=== PATIENT | male | born 1965 | race Caucasian/White ===

== ENCOUNTER 2016-06-11 20:29 | Emergency (ER) | payer MEDICAID ==
[~2016-06-11] VITALS: Ht 170.2 cm; Wt 87.0 kg
[~2016-06-11 20:29] MED LIST: DEXL60CA2 PO; DIVA-16 PO; ELEC100080 PO; HYDR-762 PO; IBUP-1542 PO; LORA-408 PO
[2016-06-11 20:42] VITALS: Ht 170.2 cm; Wt 87.0 kg
[2016-06-11] MEDS ORDERED: OMEP10CA4 PO (22:36)
[2016-06-11 22:58] LABS: BASOPHILS % 0.5 % (0.0-2.0); EOSINOPHILS # 0.1 10^3/ul (0.0-0.5); HEMOGLOBIN 12.3 g/dl (14.0-18.0); LYMPHOCYTES # 3.5 10^3/ul (0.8-2.9); LYMPHOCYTES % 35.4 % (15.0-51.0); MEAN CORPUSCULAR HEMOGLOBIN 28.1 pg (29.0-33.0); MEAN CORPUSCULAR HGB CONC 33.3 g/dl (32.0-37.0); MEAN CORPUSCULAR VOLUME 84.6 fl (82.0-101.0); MONOCYTE # 0.9 10^3/ul (0.3-0.9); MONOCYTES % 8.8 % (0.0-11.0); NEUTROPHIL # 5.3 10^3/ul (1.6-7.5); NEUTROPHILS % 54.3 % (39.0-77.0); PLATELET COUNT 346 10^3/UL (140-440); RED BLOOD COUNT 4.37 10^6/ul (4.70-6.10); RED CELL DISTRIBUTION WIDTH 16.6 % (11.5-14.5); UNCORRECTED WBC 9.8 10^3/ul (4.8-10.8); WHITE BLOOD COUNT 9.8 10^3/ul (4.8-10.8)
[2016-06-11 23:00] LABS: INR 0.91; PROTIME 12.3 Sec (12.2-14.2)
[2016-06-11 23:01] LABS: PARTIAL THROMBOPLASTIN TIME 30.7 Sec (25.0-35.0)
--- NOTE | 2016-06-11 23:02 | RADRPT ---
PROCEDURE: XR Chest. CLINICAL INDICATION: Chest pain TECHNIQUE: A single portable view of the chest was obtained. COMPARISON: 11/04/2015 FINDINGS: The cardiomediastinal silhouette is within normal limits. The lungs and pleural spaces are clear. The soft tissues and osseous structures are unremarkable. IMPRESSION: No acute cardiopulmonary disease. RPTAT: HPNM Physician Sandra Date Time Electronically viewed and signed by Fransisco Doyle Physician on 06/11/2016 23:02 /
[2016-06-11 23:03] LABS: CONDITION 1; LH ANALYZER COMMENTS 1
[2016-06-11 23:10] LABS: ALBUMIN 4.2 g/dl (3.3-4.9); CHLORIDE 105 mmol/L (97-110); SODIUM 143 mmol/L (135-144)
[2016-06-11 23:11] LABS: POTASSIUM 4.5 mmol/L (3.5-5.1)
[2016-06-11 23:13] LABS: ALANINE AMINOTRANSFERASE 14 IU/L (13-69); ALBUMIN/GLOBULIN RATIO 1.13; ALKALINE PHOSPHATASE 67 IU/L (42-121); ANION GAP 18 (8-16); ASPARTATE AMINO TRANSFERASE 18 IU/L (15-46); BLOOD UREA NITROGEN 14 mg/dl (7-20); CALCIUM 8.8 mg/dl (8.4-10.2); CARBON DIOXIDE 25 mmol/L (21-31); CREATININE 0.62 mg/dl (0.61-1.24); GLUCOSE 103 mg/dl (70-220); TOTAL PROTEIN 7.9 g/dl (6.1-8.1)
[2016-06-11 23:20] LABS: B-TYPE NATRIURETIC PEPTIDE 31 PG/ML (0-125)
[2016-06-11 23:29] LABS: TROPONIN-I < 0.012 ng/ml (0.00-0.12)
--- NOTE | 2016-06-11 23:46 | ERD ---
ER Documentation Chief Complaint Date/Time DATE: 06/11/16 TIME: 23:44 Chief Complaint chest pain provoked as he was harassed by hotel staff, since this morning HPI This is a 51-year-old male comes with chest pain provoked by stress as he was harassed by [employer] staff. It happened this morning it has been on and off since then. No fevers or chills. Pain is mild to moderate in intensity, electric- like starting in the mid chest and radiating across both the right and left chest. No fevers or chills. No associated shortness of breath. No other current complaints. ROS All systems reviewed and are negative except as per history of present illness. Medications Home Meds Active Scripts Ibuprofen* (Motrin*) 600 Mg Tab, 600 MG PO Q6, #30 TAB Prov:NED BLANCHARD PA-C 01/10/16 Divalproex Sodium* (Divalproex Sodium*) 500 Mg Tablet., 500 MG PO TID, #90 TAB Prov:NED BLANCHARD PA-C 01/10/16 Reported Medications Omeprazole* (Omeprazole*) 10 Mg Capsule., 10 MG PO DAILY, #30 CAP 06/11/16 Lorazepam (Ativan) 1 Mg Tablet, 1 MG PO DAILY 08/15/11 Discontinued Reported Medications Hydrocodone Bit-Acetaminophen* ([place]*) 10-325 Mg Tablet, 1 TAB PO TID Y for PAIN, TAB 12/14/15 Divalproex Sodium* (Divalproex Sodium*) 500 Mg Tablet., 500 MG PO TID, #90 TAB 12/14/15 Dexlansoprazole (Dexilant) 60 Mg Cap., 60 MG PO DAILY 08/15/11 Discontinued Scripts Electrolyte,Oral (Pedialyte) 1,000 Ml Solution, 100 ML PO Q6 Y for FEVER, #1000 ML Prov:NED BLANCHARD PA-C 01/10/16 Ibuprofen* (Ibuprofen*) 600 Mg Tablet, 600 MG PO Q8 for PAIN AND/OR INFLAMMATION , #30 TAB Prov:SHAN LACEY MD 12/14/15 Allergies Allergies: Coded Allergies: Penicillins (Verified Allergy, Unknown, 06/11/16) PMhx/Soc History of Surgery: Yes (LUMBAR DISCECTOMY;) Anesthesia Reaction: No Hx Neurological Disorder: No Hx Respiratory Disorders: No Hx Cardiac Disorders: No Hx Psychiatric Problems: Yes (BIPOLAR, anxiety) Hx Miscellaneous Medical Probl: No Hx Alcohol Use: Yes Hx Substance Use: Yes (METH ) Hx Tobacco Use: No Smoking Status: Never smoker Physical Exam Vitals Vital Signs Date Time Temp Pulse Resp B/P Pulse Ox O2 Delivery O2 Flow Rate FiO2 06/11/16 22:15 98.6 76 20 117/82 100 Room Air 06/11/16 20:42 98.6 88 20 123/59 100 Physical Exam Const: [] Head: Atraumatic Eyes: Normal Conjunctiva ENT: Normal External Ears, Nose and Mouth. Neck: Full range of motion..~ No meningismus. Resp: Clear to auscultation bilaterally Cardio: Regular rate and rhythm, no murmurs Abd: Soft, non tender, non distended. Normal bowel sounds Skin: No petechiae or rashes Back: No midline or flank tenderness Ext: No cyanosis, or edema Neur: Awake and alert Psych: Normal Mood and Affect Result Diagram: 06/11/16221906/11/16 2220 Results 24 hrs Laboratory Tests Test 06/11/16 22:20 Activated Partial Thromboplast Time 30.7Sec Alanine Aminotransferase (ALT/SGPT) 14IU/L Albumin 4.2g/dl Albumin/Globulin Ratio 1.13 Alkaline Phosphatase 67IU/L Anion Gap 18 Aspartate Amino Transf (AST/SGOT) 18IU/L B-Type Natriuretic Peptide 31PG/ML Basophils # 0.010^3/ul Basophils % 0.5% Blood Morphology Comment Blood Urea Nitrogen 14mg/dl Calcium Level 8.8mg/dl Carbon Dioxide Level 25mmol/L Chloride Level 105mmol/L Creatinine 0.62mg/dl Direct Bilirubin 0.00mg/dl Eosinophils # 0.110^3/ul Eosinophils % 1.0% Globulin 3.70g/dl Glucose Level 103mg/dl Hematocrit 37.0% Hemoglobin 12.3g/dl INR International Normalized Ratio 0.91 Indirect Bilirubin 0.0mg/dl Lymphocytes # 3.510^3/ul Lymphocytes % 35.4% Mean Corpuscular Hemoglobin 28.1pg Mean Corpuscular Hemoglobin Concent 33.3g/dl Mean Corpuscular Volume 84.6fl Mean Platelet Volume 8.0fl Monocytes # 0.910^3/ul Monocytes % 8.8% Neutrophils # 5.310^3/ul Neutrophils % 54.3% Nucleated Red Blood Cells # 0.010^3/ul Nucleated Red Blood Cells % 0.0/100WBC Platelet Count 04748^3/UL Potassium Level 4.5mmol/L Prothrombin Time 12.3Sec Prothrombin Time Ratio 1.0 Red Blood Count 4.3710^6/ul Red Cell Distribution Width 16.6% Sodium Level 143mmol/L Total Bilirubin 0.0mg/dl Total Protein 7.9g/dl Troponin I < 0.012ng/ml White Blood Count 9.810^3/ul Procedures/MDM EKG: Rate/Rhythm: Normal Sinus Rhythm QRS, ST, T-waves: No changes consistent w/ acute ischemia Impression: No evidence of ischemia or arrhythmia Chest X-ray 1V Interpreted by me: Soft Tissue: No acute abnormalities Bones: No acute abnormalities Mediastinum/Cardiac Silhouette/Lungs: No acute abnormalities Patient's thoracic symptoms have stabilized while in the department and are stable for outpatient follow up. Exam and work up not consistent w/ ischemia, arrhythmia, PE or dissection. Symptomatology is inconsistent with acute coronary syndrome. At this point is stable for outpatient management. Patient has no risk factors for acute coronary syndrome. At this time he is chest pain-free. He will be discharged home and has been told to follow-up immediately with a hired worker as an outpatient. Return via 911 for any return of chest pain. Departure Diagnosis: Primary Impression: Chest pain Chest pain type: unspecified Qualified Code: R07.9 - Chest pain, unspecified type Condition: Stable BABATUNDE SMITH Jun 11, 2016 23:45
[2016-06-11 23:55] VITALS: BP 121/88; PULSE 68; RESP 20; TEMP 98.6
== END 2016-06-11 23:55 | disposition home or self-care (01) ==
LOC: E/R 20:29
DX: R07.9 Chest pain, unspecified (principal)
CPT/HCPCS: 36415; 71010; 80053; 83880; 84484; 85025; 85610; 85730; Z7502; 93005

== ENCOUNTER 2016-08-23 16:14 | Emergency (ER) | payer MEDICAID ==
[~2016-08-23] VITALS: Wt 91.0 kg
[~2016-08-23 16:14] MED LIST changes: -DEXL60CA2 PO; -ELEC100080 PO; -HYDR-762 PO; +OMEP10CA4 PO
--- NOTE | 2016-08-23 18:04 | ERD ---
ER Documentation Chief Complaint Date/Time DATE: 08/23/16 TIME: 17:59 Chief Complaint ANXIETY AND CHRONIC BACK PAIN HPI 51-year-old male with history of chronic back pain is complaining of short of breath and numbness. Patient stated that he "passed out" 1 hour ago. He also feeling weak and fatigued. He was seen yesterday at [facility] ER for chest pain. He had received complete workup for chest pain, everything was negative and he was discharged. Patient stated that he is currently homeless, he is awaiting for disability checks. He does not have any place to stay tonight, and he had not eaten anything today because he has no money. His back is hurting because he has to carry his duffel bag all day. ROS All systems reviewed and are negative except as per history of present illness. Medications Home Meds Active Scripts Ibuprofen* (Motrin*) 600 Mg Tab, 600 MG PO Q6, #30 TAB Prov:NED BLANCHARD PA-C 01/10/16 Divalproex Sodium* (Divalproex Sodium*) 500 Mg Tablet., 500 MG PO TID, #90 TAB Prov:NED BLANCHARD PA-C 01/10/16 Reported Medications Omeprazole* (Omeprazole*) 10 Mg Capsule.dr, 10 MG PO DAILY, #30 CAP 06/11/16 Lorazepam (Ativan) 1 Mg Tablet, 1 MG PO DAILY 08/15/11 Allergies Allergies: Coded Allergies: Penicillins (Verified Allergy, Unknown, 06/11/16) PMhx/Soc History of Surgery: Yes (LUMBAR DISCECTOMY;) Anesthesia Reaction: No Hx Neurological Disorder: No Hx Respiratory Disorders: No Hx Cardiac Disorders: No Hx Psychiatric Problems: Yes (BIPOLAR, anxiety) Hx Miscellaneous Medical Probl: No Hx Alcohol Use: Yes Hx Substance Use: Yes (METH ) Hx Tobacco Use: No Physical Exam Vitals Vital Signs Date Time Temp Pulse Resp B/P Pulse Ox O2 Delivery O2 Flow Rate FiO2 08/23/16 16:21 98.0 98 18 118/64 99 Physical Exam General impression: Well-developed, well-nourished. Alert, oriented, in no acute distress. Patient is resting comfortably in the gurney without any sign of anxiety. Head: Normocephalic, atraumatic. Eyes: PERRL, EOM normal. Sclerae are normal. Conjunctiva not injected. Neck: Supple, nontender. No lymphadenopathy. No nuchal rigidity. Respiration: Normal respiratory effort. Lungs clear to auscultate bilaterally. No wheezes, rales or rhonchi. Cardiovascular: Regular rate and rhythm. No murmurs or extra heart sounds. Abdomen: Abdomen normal to inspection. Nontender. No masses or organomegaly. Bowel sounds normal. Back: Normal to inspection. No midline spine tenderness. No CVA tenderness. Extremities: Extremities normal to inspection, nontender. ROM normal. Neuro: Mental status normal, speech normal. AUDIT PARTNER grossly intact. Skin: Normal turgor. No rash or lesions. Psych: Normal mood and affect. Result Diagram: 08/23/16180408/23/161804 Results 24 hrs Laboratory Tests Test 08/23/16 18:05 White Blood Count 8.310^3/ul Red Blood Count 4.7510^6/ul Hemoglobin 13.3g/dl Hematocrit 40.4% Mean Corpuscular Volume 85.1fl Mean Corpuscular Hemoglobin 28.0pg Mean Corpuscular Hemoglobin Concent 32.9g/dl Red Cell Distribution Width 12.4% Platelet Count 62419^3/UL Mean Platelet Volume 9.6fl Neutrophils % 56.4% Lymphocytes % 33.9% Monocytes % 7.7% Eosinophils % 1.7% Basophils % 0.2% Nucleated Red Blood Cells % 0.0/100WBC Neutrophils # 4.710^3/ul Lymphocytes # 2.810^3/ul Monocytes # 0.610^3/ul Eosinophils # 0.110^3/ul Basophils # 0.010^3/ul Nucleated Red Blood Cells # 0.010^3/ul Sodium Level 139mmol/L Potassium Level 3.4mmol/L Chloride Level 100mmol/L Carbon Dioxide Level 24mmol/L Anion Gap 18 Blood Urea Nitrogen 18mg/dl Creatinine 0.80mg/dl Glucose Level 152mg/dl Calcium Level 9.4mg/dl Total Bilirubin 0.2mg/dl Direct Bilirubin 0.00mg/dl Indirect Bilirubin 0.2mg/dl Aspartate Amino Transf (AST/SGOT) 22IU/L Alanine Aminotransferase (ALT/SGPT) 20IU/L Alkaline Phosphatase 54IU/L Troponin I < 0.012ng/ml Total Protein 8.3g/dl Albumin 4.7g/dl Globulin 3.60g/dl Albumin/Globulin Ratio 1.30 Procedures/MDM Well-appearing 51-year-old male with history of chronic back pain and anxiety presents to the ED with shortness breath and feeling anxious. Patient also reports feeling fatigued. EKG: Normal sinus rhythm, normal axis. No ST segment elevation or depression. No ectopic beats. No QT prolongation. No other EKG abnormalities. EKG read by Dr. Fonseca. CBC, CMP, and troponin are negative. No sign of anemia or electrolyte abnormalities. He had undergone cardiac workup yesterday at [facility]. I do not feel any further workup is needed at this time. Patient is currently homeless. I suspect the reason he came here is to seek temporary respite. Patient is provided with resources for housing and food. Patient appears well, stable for discharge and outpatient management. Medical decision making shared with patient and family. Education provided to patient and family. Patient and family expressed understanding of the plan. Medications on discharge: None. Follow-up: Primary care provider in 2-3 days or return to ED if worse. Departure Diagnosis: Primary Impression: Fatigue Condition: Good PARVIN MOTA NP Aug 23, 2016 18:04
[2016-08-23 18:19] LABS: ADD SCAN DIFF NO
[2016-08-23 18:24] LABS: BASOPHILS % 0.2 % (0.0-2.0); EOSINOPHILS # 0.1 10^3/ul (0.0-0.5); EOSINOPHILS % 1.7 % (0.0-7.0); HEMATOCRIT 40.4 % (42.0-52.0); HEMOGLOBIN 13.3 g/dl (14.0-18.0); LYMPHOCYTES # 2.8 10^3/ul (0.8-2.9); LYMPHOCYTES % 33.9 % (15.0-51.0); MEAN CORPUSCULAR HGB CONC 32.9 g/dl (32.0-37.0); MEAN CORPUSCULAR VOLUME 85.1 fl (82.0-101.0); MEAN PLATELET VOLUME 9.6 fl (7.4-10.4); MONOCYTE # 0.6 10^3/ul (0.3-0.9); MONOCYTES % 7.7 % (0.0-11.0); NEUTROPHIL # 4.7 10^3/ul (1.6-7.5); NEUTROPHILS % 56.4 % (39.0-77.0); PLATELET COUNT 329 10^3/UL (140-415); RED BLOOD COUNT 4.75 10^6/ul (4.70-6.10); RED CELL DISTRIBUTION WIDTH 12.4 % (11.5-14.5); WHITE BLOOD COUNT 8.3 10^3/ul (4.8-10.8)
[2016-08-23 18:35] LABS: ALBUMIN 4.7 g/dl (3.3-4.9); CHLORIDE 100 mmol/L (97-110)
[2016-08-23 18:36] LABS: POTASSIUM 3.4 mmol/L (3.5-5.1); SODIUM 139 mmol/L (135-144)
[2016-08-23 18:38] LABS: ANION GAP 18 (8-16); ASPARTATE AMINO TRANSFERASE 22 IU/L (15-46); BILIRUBIN,INDIRECT 0.2 mg/dl (0-1.1); BILIRUBIN,TOTAL 0.2 mg/dl (0.2-1.3); CARBON DIOXIDE 24 mmol/L (21-31); TOTAL PROTEIN 8.3 g/dl (6.1-8.1)
[2016-08-23 18:39] LABS: ALANINE AMINOTRANSFERASE 20 IU/L (13-69); ALKALINE PHOSPHATASE 54 IU/L (42-121); BLOOD UREA NITROGEN 18 mg/dl (7-20); CALCIUM 9.4 mg/dl (8.4-10.2); GLUCOSE 152 mg/dl (70-220)
[2016-08-23 19:04] LABS: TROPONIN-I < 0.012 ng/ml (0.00-0.12)
== END 2016-08-23 20:08 | disposition home or self-care (01) ==
LOC: FTE 16:14
DX: R53.83 Other fatigue (principal)
CPT/HCPCS: 36415; 80053; 84484; 85025; 93005; Z7502

== ENCOUNTER 2016-08-26 22:55 | Emergency (ER) | payer MEDICAID ==
[~2016-08-26] VITALS: Ht 179.1 cm; Wt 82.5 kg
[2016-08-26 23:12] VITALS: Ht 179.1 cm; Wt 82.5 kg
[2016-08-27] MEDS ORDERED: KETOROLAC 60 MG INJ IM STA (01:29)
[2016-08-27] MEDS ORDERED: METHYLPREDNISOLONE 125 MG INJ IM ONE (01:30)
[2016-08-27] MEDS ORDERED: LORAZEPAM 0.5 MG TAB PO ONE (01:30)
--- NOTE | 2016-08-27 01:42 | ERD ---
ER Documentation Chief Complaint Date/Time DATE: 08/27/16 TIME: 01:36 Chief Complaint C/O LOWER BACK PAIN X5 DAYS. NO MEDS DUE TO INSURANCE ISSUES. HPI 51-year-old male with a history of chronic back pain and anxiety, presents to the emergency department complaining of low back pain, and neck pain with radiation down the left arm. He notes associated numbness and tingling. Patient states that these symptoms are similar to prior episodes and he has experienced these symptoms intermittently over the past 10 years. Patient states he initially injured his back during a waterskiing injury. Patient states he is here to control his pain and notes that he has no money and he is hoping to stay the night in the hospital as he does not have a place to go. Patient denies any bowel or bladder incontinence, numbness or tingling in his feet, or other new trauma. Additionally patient denies any chest pain, shortness of breath, unilateral leg swelling, prolonged immobilization, recent surgery, or history of cancer. ROS All systems reviewed and are negative except as per history of present illness. Medications Home Meds Active Scripts Naproxen* (Naprosyn*) 500 Mg Tablet, 500 MG PO BID for 7 Days, TAB Prov:YANELIS PEÑA PA-C 08/27/16 Hydrocodone/Acetaminophen ([place] 5-325 Tablet) 1 Each Tablet, 1 TAB PO Q6H Y for PAIN, #7 TAB Prov:YANELIS PEÑA PA-C 08/27/16 Ibuprofen* (Motrin*) 600 Mg Tab, 600 MG PO Q6, #30 TAB Prov:NED BLANCHARD PA-C 01/10/16 Divalproex Sodium* (Divalproex Sodium*) 500 Mg Tablet., 500 MG PO TID, #90 TAB Prov:NED BLANCHARD PA-C 01/10/16 Reported Medications Omeprazole* (Omeprazole*) 10 Mg Capsule.dr, 10 MG PO DAILY, #30 CAP 06/11/16 Lorazepam (Ativan) 1 Mg Tablet, 1 MG PO DAILY 08/15/11 Allergies Allergies: Coded Allergies: Penicillins (Verified Allergy, Unknown, 06/11/16) PMhx/Soc History of Surgery: Yes (LUMBAR DISECTOMY;) Anesthesia Reaction: No Hx Neurological Disorder: No Hx Respiratory Disorders: No Hx Cardiac Disorders: No Hx Psychiatric Problems: Yes (BIPOLAR, anxiety) Hx Miscellaneous Medical Probl: No Hx Alcohol Use: Yes Hx Substance Use: Yes (METH ) Hx Tobacco Use: No (pt denies) Physical Exam Vitals Vital Signs Date Time Temp Pulse Resp B/P Pulse Ox O2 Delivery O2 Flow Rate FiO2 08/26/16 23:12 97.1 111 20 121/77 98 Physical Exam Const: Well-developed, well-nourished, no acute distress Head: Atraumatic Eyes: Normal Conjunctiva ENT: Normal External Ears, Nose and Mouth. Neck: Full range of motion.. No tenderness to palpation at cervical spine. Resp: Clear to auscultation bilaterally Cardio: Regular rate and rhythm, no murmurs Abd: Soft, non tender, non distended. Normal bowel sounds Skin: No petechiae or rashes Back: No midline or flank tenderness Ext: Full range of motion at upper and lower extremities bilaterally. Positive straight leg test. Decreased sensation along distal left upper extremity. Patient unable to discriminate between 2 points along radial and ulnar aspects of all 5 fingers. Radial pulses 2+ equal and bilateral. Upper extremity distal skin warm and well perfused. Brisk capillary refill. No evidence of significant atrophy. Strength equal and bilateral. No cyanosis, or edema Neur: Awake and alert Psych: Normal Mood and Affect Results 24 hrs Current Medications Medications (Trade) Dose Ordered Sig/Susi Route PRN Reason Start Time Stop Time Status Last Admin Dose Admin Ketorolac Tromethamine (Toradol) 60 mg ONCE STAT IM 08/27/16 01:29 08/27/16 01:32 DC Methylprednisolone Sodium Succinate (Solu-Medrol) 60 mg ONCE ONCE IM 08/27/16 01:30 08/27/16 01:32 DC Lorazepam (Ativan) 0.5 mg ONCE ONCE PO 08/27/16 01:30 08/27/16 01:32 DC Procedures/MDM 51-year-old male with a history of chronic back pain and anxiety presents the emergency department requesting to be admitted due to the fact that he is homeless and needs a place to sleep. Patient complains of ongoing back pain associated with left upper extremity numbness and tingling. Patient states that symptoms are similar to prior episodes. Patient able to ambulate without difficulty. Patient denies any bowel or bladder incontinence. The patient's low back pain is unlikely related to serious etiology. The patient exhibits no clinical signs or symptoms and has no history or risk factors to suggest cauda equina, cord compression, epidural abscess, epidural hematoma, acute aortic aneurysm or dissection. Patient's vital signs were reviewed. Patient is afebrile, mildly tachycardic at 111 bpm, normotensive and not hypoxic upon arrival. Patient denies any major leg swelling or redness, recent surgery, prolonged immobilization. At this time a low suspicion for acute DVT or PE. Patient received Toradol and Solu-Medrol in the emergency department as well as 0.5 mg of Ativan. Patient reports improvement of symptoms. Based on patient's history of present illness and physical examination the decision was made to discharge. The patient was re-evaluated after ED treatment and stabilizing measures, and symptoms have improved. There is no evidence of life threatening injuries or illnesses at this time. On re-examination, patient resting in no distress, stable vital signs, reports feeling better and safe for discharge with outpatient follow up with PMD in 1-2 days. Patient given return precautions. Departure Diagnosis: Primary Impression: Back pain Back pain location: low back pain Chronicity: chronic Back pain laterality : midline Sciatica presence: unspecified whether sciatica present Qualified Code: M54.5 - Chronic midline low back pain, with sciatica presence unspecified Additional Impressions: Neck pain Cervical radiculopathy YANELIS PEÑA PA-C Aug 27, 2016 01:42
[2016-08-27] MEDS ORDERED: HYDR-906 PO (01:43)
[2016-08-27] MEDS ORDERED: NAPR-260 PO (01:43)
[2016-08-27] MEDS ORDERED: IBUP400T22 PO (14:13)
[2016-08-27] MEDS ORDERED: ACET325T33 PO (14:13)
[2016-08-27] MEDS ORDERED: FAMO-18 PO (14:14)
== END 2016-08-27 01:51 | disposition home or self-care (01) ==
LOC: FTE 22:55
DX: M54.5 Low back pain (principal); M54.2 Cervicalgia; M54.12 Radiculopathy, cervical region
CPT/HCPCS: 96372; J1885; J2930; Z7502; Z7610

== ENCOUNTER 2016-08-27 09:23 | Emergency (ER) | payer MEDICAID ==
[~2016-08-27] VITALS: Ht 175.3 cm; Wt 83.5 kg
[~2016-08-27 09:23] MED LIST changes: +HYDR-906 PO; +NAPR-260 PO
[2016-08-27 09:43] VITALS: Ht 175.3 cm; Wt 83.5 kg
[2016-08-27] MEDS ORDERED: DIAZEPAM 5 MG TAB PO STA (10:47)
[2016-08-27] MEDS ORDERED: KETOROLAC 15 MG INJ IM STA (10:47)
[2016-08-27] MEDS ORDERED: FAMOTIDINE 20 MG TAB PO STA (10:54)
--- NOTE | 2016-08-27 11:11 | ERD ---
ER Documentation Chief Complaint Date/Time DATE: 08/27/16 TIME: 11:06 Chief Complaint BACK PAIN SEEN LAST NIGHT, RINGING BOTH EARS X2 MTHS HPI This is a 51-year-old male presenting to the emergency department who is homeless with history of PTSD, ruptured disc in the lower back with a microdiscectomy surgery 10 years ago, and cervical nerve impingement presenting to the emergency department complaining o with multiple complaints of chronic lower back pain, neck pain, tinnitus for the past 2 months. Patient has been here numerous times in the past, his last visit was last night complaining of low back pain and neck pain that radiates down his right arm with numbness and tingling in his right fingers. Patient states that he has had imaging and surgeries in the past. Patient states that a couple months ago he has had a really bad ear infection and lost 30% of his hearing in the left ear, he states that after he was treated that he gets ringing in his ears that has been on and off for the past 3 months. He admits to fatigue. Denies ear pain. Patient states that he was given [place] prescription last night but they were not unable to refill it at the pharmacy so he has not taken any medications. Patient states that he has not taken any medications for his PTSD and he wants to speak to a psychiatrist to get the medications. Patient denies any homicidal ideation , suicidal thoughts or plan. Patient denies any bladder or bowel incontinence, saddle anesthesia. Patient denies any shortness of breath or chest pain. Last night patient was given Toradol, qpce-Llyp-Xvunan and Ativan and he had some improvement in his symptoms. ROS All systems reviewed and are negative except as per history of present illness. Medications Home Meds Active Scripts Famotidine* (Pepcid*) 20 Mg Tablet, 20 MG PO DAILY for 4 Days, #20 TAB Prov:CHARO JOHNSON PA-C 08/27/16 Ibuprofen* (Ibuprofen*) 400 Mg Tablet, 400 MG PO Q6H Y for PAIN, #30 TAB Prov:CHARO JOHNSON PA-C 08/27/16 Acetaminophen* (Tylenol*) 325 Mg Tablet, 2 TAB PO Q4 Y for PAIN AND OR ELEVATED TEMP, #30 TAB Prov:CHARO JOHNSON PA-C 08/27/16 Divalproex Sodium* (Divalproex Sodium*) 500 Mg Tablet., 500 MG PO TID, #90 TAB Prov:NED BLANCHARD PA-C 01/10/16 Discontinued Reported Medications Omeprazole* (Omeprazole*) 10 Mg Capsule.dr, 10 MG PO DAILY, #30 CAP 06/11/16 Lorazepam (Ativan) 1 Mg Tablet, 1 MG PO DAILY 08/15/11 Discontinued Scripts Naproxen* (Naprosyn*) 500 Mg Tablet, 500 MG PO BID for 7 Days, TAB Prov:YANELIS PEÑA PA-C 08/27/16 Hydrocodone/Acetaminophen ([place] 5-325 Tablet) 1 Each Tablet, 1 TAB PO Q6H Y for PAIN, #7 TAB Prov:YANELIS PEÑA PA-C 08/27/16 Ibuprofen* (Motrin*) 600 Mg Tab, 600 MG PO Q6, #30 TAB Prov:NED BLANCHARD PA-C 01/10/16 Allergies Allergies: Coded Allergies: Penicillins (Verified Allergy, Unknown, 08/27/16) PMhx/Soc History of Surgery: Yes (LUMBAR DISECTOMY;) Anesthesia Reaction: No Hx Neurological Disorder: No Hx Respiratory Disorders: No Hx Cardiac Disorders: No Hx Psychiatric Problems: Yes (BIPOLAR, anxiety) Hx Miscellaneous Medical Probl: No Hx Alcohol Use: Yes Hx Substance Use: Yes (METH ) Hx Tobacco Use: No (pt denies) Smoking Status: Never smoker Physical Exam Vitals Vital Signs Date Time Temp Pulse Resp B/P Pulse Ox O2 Delivery O2 Flow Rate FiO2 08/27/16 09:43 97.9 93 20 114/70 97 Physical Exam GENERAL: well-developed/well-nourished, in no apparent distress, non-toxic appearing HENT: NC/AT, bilateral tympanic membrane is normal with good cone of light, nares patent, oropharynx clear without exudates EYES: Conjunctiva normal, PERRLA, EOMI, no nystagmus noted NECK: Supple, no lymphadenopathy, tender to palpation in the trapezius regions bilaterally PULM: CTA bilaterally, no rales, rhonchi, or wheezing heard CV: Normal S1S2, RRR, good capillary refill GI: Soft, non-distended, normal bowel sounds, non-tender BACK: No midline tenderness, no masses, No CVAT, tenderness to palpation in the lumbar region EXT: No clubbing, cyanosis, or edema NEURO: Alert and orientated to person, place, and time. CN II-IIX intact. Gait and coordination were normal. Hand director emergency strength were equal and within normal limits SKIN: Intact, normal turgor PSYCH: Normal mood and mentation, patient denied SI Results 24 hrs Current Medications Medications (Trade) Dose Ordered Sig/Susi Route PRN Reason Start Time Stop Time Status Last Admin Dose Admin Ketorolac Tromethamine (Toradol) 15 mg ONCE STAT IM 08/27/16 10:47 08/27/16 10:51 DC 08/27/16 11:02 Diazepam (Valium) 10 mg ONCE STAT PO 08/27/16 10:47 08/27/16 10:51 DC 08/27/16 11:02 Famotidine (Pepcid) 20 mg ONCE STAT PO 08/27/16 10:54 08/27/16 10:56 DC 08/27/16 11:02 Procedures/MDM This is a 51-year-old male presenting to the emergency department who is homeless with history of PTSD, ruptured disc in the lower back with a microdiscectomy surgery 10 years ago, and cervical nerve impingement presenting to the emergency department complaining with multiple complaints of fatigue, chronic lower back pain, chronic neck pain with cervical radiculopathy, on/off tinnitus for the past 2 months. Patient presents with a chronic lower back pain without any evidence of cauda equina syndrome, spinal abscess or vertebral fracture at this time. Patient also complains of chronic neck pain with cervical radiculopathy, in that case I believe it is best for patient to follow- up with his orthopedist for further evaluation and management and to continue physical therapy. A CT scan of his head was done due to his on and off tinnitus for the past 3 months and was unremarkable for the his pathology. The radiologist stated that he had left paranasal left mastoid disease. In regards to patient's fatigue and PTSD symptoms, he denies any suicidal thought or ideation or homicidal ideation. I do not believe he meets the criteria for psychiatric admission however patient is suitable to speak to a psychiatric social worker in regards to how to get the proper outpatient resources. In the ED patient was given Toradol, Pepcid and Valium for his back pain. Patient did have improvements in his symptoms however he will need to continue to follow-up with an orthopedist. I have discussed with him that he will need to follow-up with the doctor because we cannot continue to give him narcotics. can worker has discussed with the patient and has given him the resources that he needs. can worker has discussed with me that he is having delusional thoughts and that he may benefit from a psych consultation. Dr. Navarro has evaluated the patient and he does not meet psychiatric admission, patient is suitable for outpatient care. I have given him instructions on shelters, substance abuse, and resources to get help for mental conditions. Patient is neurovascularly intact and hemodynamically stable for discharge with precautions to return to the emergency room for any worsening signs or symptoms. He understands and agrees with this plan CT head of the head without contrast: No acute intracranial findings. Left paranasal sinus and left mastoid disease is new since 11/05/2015. Departure Diagnosis: Primary Impression: Back pain Additional Impressions: Fatigue Tinnitus Condition: Stable CHARO JOHNSON PA-C Aug 27, 2016 11:11
--- NOTE | 2016-08-27 11:38 | RADRPT ---
PROCEDURE: CT Brain without contrast. CLINICAL INDICATION: Neurologic deficit TECHNIQUE: A CT of the brain was performed on multidetector high-resolution CT scanner utilizing a xial sections from the skull base through the vertex without contrast. One or more of the following dose reduction techniques were used: Automated exposure control, Adjustment of the mA and/or kV acc ording to patient size, and/or use of iterative reconstruction technique. DOSE: CTDI = 44 mGy and the DLP = 720 mGy-cm. COMPARISON: Head CT 11/05/2015 FINDINGS: No acute intracranial hemorrhage, significant mass effect or midline shift. The salinas-white different iation is grossly preserved. The ventricles are normal in size for age. Partially opacified left frontal sinus with chronic david-o steogenesis. There is also expansile opacification of the left anterior ethmoid and partial opacifi cation of the left maxillary sinus partially imaged. Partial opacification of the left mastoid is s een. IMPRESSION: No acute intracranial findings. Left paranasal sinus and left mastoid disease is new since 11/05/2015. RPTAT: AA .Jayesh Up MD, MD Date Time Electronically viewed and signed by .Jayesh Up MD, on 08/27/2016 11:37 .T/
[2016-08-27] MEDS ORDERED: IBUP400T22 PO (14:13)
[2016-08-27] MEDS ORDERED: ACET325T33 PO (14:13)
[2016-08-27] MEDS ORDERED: FAMO-18 PO (14:14)
--- NOTE | 2016-08-27 14:15 | PSY ---
Date/Time of Note Date/Time of Note DATE: 08/27/16 TIME: 14:06 Psychiatric Subjective Eval Consent Pt consented to telemedicine: Yes Subjective Evaluation Patient location: emergency Chief Complaint: BACK PAIN SEEN LAST NIGHT, RINGING BOTH EARS X2 MTHS History of present illness 51 yo homeless male presenting to ED c/o back pain and then expressing numerous paranoid delusions. Pt is calm, cooperative; he does talk about being a "targeted individual" and not feeling safe outside. However, his thought process is organzied, no agitaiton, no AH or Vh, no Si or HI, no depression. Pt c/o anxiety and asks for Ativan. Past psychiatric history pt has a hx multiple inpt for Bipolar d/o and PTSD, hx incarcerations, multiple drug trials but he refuses to be on psych meds. Hospitalization: yes Family History denies Medical history Problems Medical Problems: (1) Anxiety Status: Acute (2) Back pain Status: Acute (3) Back pain Status: Acute (4) Blister Status: Acute (5) Cervical radiculopathy Status: Acute (6) Chest pain Status: Acute (7) Chest pain Status: Acute (8) Dyspepsia Status: Acute (9) Fatigue Status: Acute (10) Fatigue Status: Acute (11) Hypertension Status: Acute (12) Laceration of finger of left hand Status: Acute (13) Medication refill Status: Acute (14) Methamphetamine abuse Status: Acute (15) Neck pain Status: Acute (16) Patient left before triage assessment Status: Acute (17) Patient left without being seen Status: Acute (18) Tinnitus Status: Acute Allergies: Coded Allergies: Penicillins (Verified Allergy, Unknown, 08/27/16) Substance Abuse Substance abuse history: Yes Prior substance abuse treatmen: Yes Social History Marital status: single DPA/Conservatorship: No Occupation/Prison: on [employer], homeless Psychiatric Objective Eval Physical Examination: Sleep: Adequate Appetite: Adequate Energy: Adequate Interest: Adequate Mental Status Examination: Appearance: Groomed Eye Contact: Good Psychomotor Activity: Normal Behavior: Cooperative Speech: Clear AFFECT: Appropriate Mood: Appropriate/Full Though Process: Linear Thought Content: Delusions Suicidal: No Homicidal: No On 72 hour hold: No Orientation: x4 Cognition: Alert Insight: Impared Judgement: Impared Assessment and Plan Assessment/Diagnosis Rhodelia I: AMPHETAMINE USE DISORDER. PSYCHOSIS NOS Rhodelia II: DEFERED Rhodelia III: PER RECORD Rhodelia IV: SEVERE Rhodelia V: GAF 45 Recommendation/Plan Medication Management OFFERED RISPERIDONE 1 MG PO QHS - PT REFUSED Psychotherapy 12 STEP Follow-up/Disposition NO DTS, DTO, GD- PT CLEARLY IS SEEKING A PLACEMENT, " UNTIL I GET MY CHECK ON September". PLEASE DISCHARGE WITH REFERRALS TO HOUSING AND OUTPT MENTAL HEALTH. BOY GOLDSTEIN MD Aug 27, 2016 14:15
== END 2016-08-27 14:49 | disposition home or self-care (01) ==
LOC: FTE 09:23 → E/R 14:49
DX: M54.9 Dorsalgia, unspecified (principal); H93.13 Tinnitus, bilateral; R53.83 Other fatigue; R93.0 Abnormal findings on diagnostic imaging of skull and head, not elsewhere classified
CPT/HCPCS: 70450; J1885; Z7610; 96372

== ENCOUNTER 2016-12-20 16:29 | Emergency (ER) | payer MEDICAID, OTHER ==
[~2016-12-20] VITALS: Wt 87.0 kg
[~2016-12-20 16:29] MED LIST changes: +ACET325T33 PO; +FAMO-96 PO; -HYDR-906 PO; -IBUP-1542 PO; +IBUP400T22 PO; -LORA-408 PO; -NAPR-260 PO; -OMEP10CA4 PO
--- NOTE | 2016-12-20 17:10 | ERA ---
ER Documentation Chief Complaint Date/Time DATE: 12/20/16 TIME: 17:06 Chief Complaint CHRONIC NECK AND BACK PAIN, SAID HE WANTS TO BE ADMITTED HPI 51-year-old male presenting with multiple complaints including neck pain, groin pruritus, general malaise. Patient is requesting to be admitted and/or pain medications. Has had neck pain in the past that has spontaneously resolved. Is requesting Mendon and IV pain medication. Patient states he has felt feverish but has not taken his temperature. Patient denies numbness, tingling, or other rapidly progressive neurological deficits, urinary retention, rigors, lower back pain, IV drug use, alcohol abuse, headache. Does have a history of chronic lower back pain but states it does not hurt right now. Patient has no other complaints and describes no other associated manifestations. Nursing notes have been reviewed and are consistent with history given. ROS All systems reviewed and are negative except as per history of present illness. Medications Home Meds Active Scripts Famotidine* (Pepcid*) 20 Mg Tablet, 20 MG PO DAILY for 4 Days, #20 TAB Prov:CHARO JOHNSON PA-C 08/27/16 Ibuprofen* (Ibuprofen*) 400 Mg Tablet, 400 MG PO Q6H Y for PAIN, #30 TAB Prov:CHARO JOHNSON PA-C 08/27/16 Acetaminophen* (Tylenol*) 325 Mg Tablet, 2 TAB PO Q4 Y for PAIN AND OR ELEVATED TEMP, #30 TAB Prov:CHARO JOHNSON PA-C 08/27/16 Divalproex Sodium* (Divalproex Sodium*) 500 Mg Tablet., 500 MG PO TID, #90 TAB Prov:NED BLANCHARD PA-C 01/10/16 Allergies Allergies: Coded Allergies: Penicillins (Verified Allergy, Unknown, 12/20/16) PMhx/Soc History of Surgery: Yes (LUMBAR DISECTOMY;) Anesthesia Reaction: No Hx Neurological Disorder: No Hx Respiratory Disorders: No Hx Cardiac Disorders: No Hx Psychiatric Problems: Yes (BIPOLAR, anxiety) Hx Miscellaneous Medical Probl: No Hx Alcohol Use: Yes Hx Substance Use: Yes (METH ) Hx Tobacco Use: No (pt denies) Smoking Status: Former smoker Physical Exam Vitals Vital Signs Date Time Temp Pulse Resp B/P Pulse Ox O2 Delivery O2 Flow Rate FiO2 12/20/16 16:37 97.6 61 17 113/75 99 Physical Exam Const: Healthy-appearing. No acute distress. Head: Normocephalic, Atraumatic. Eyes: Non-injected; No discharge or foreign body. EOMI and MELIA bilaterally. Ears: Normal External Ears, EACs clear, TM normal bilaterally without erythema. Nose: Normal external nose; no discharge, septal deviation, or sinus tenderness. Oral: No oral edema visualized. Mucous membranes moist and pink. Neck: No cervical lymphadenopathy or . Trachea midline. Supple ~ No meningismus. Pulm: Good air movement in upper and lower respiratory tracts. No dyspnea, stridor, tripoding or drooling. Clear to auscultation bilaterally. Cardio: Regular rate and rhythm; No murmurs, gallops or rubs auscultated. No JVD grossly observed. Radial and posterior tibial pulses 2+ bilaterally. No cyanosis. Capillary refill less than 2 seconds. Abd: Soft, non tender, non distended. No guarding, masses. Normal bowel sounds. No McBurney's point tenderness. MS: Normal motor strength, normal tone with gross examination. Skin: No petechiae or rashes. No ulcer, induration, jaundice. Good turgor. Back: No midline, flank or CVA tenderness. Ext: No edema. Normal movement of all extremities grossly observed. Neur: Awake, alert and oriented x3. Neurovascularly intact bilaterally. Psych: Normal Mood and Affect. Result Diagram: 12/20/16 1713 12/20/16 1713 Results 24 hrs Laboratory Tests Test 12/20/16 17:13 White Blood Count 9.510^3/ul Red Blood Count 5.5210^6/ul Hemoglobin 14.8g/dl Hematocrit 44.9% Mean Corpuscular Volume 81.3fl Mean Corpuscular Hemoglobin 26.8pg Mean Corpuscular Hemoglobin Concent 33.0g/dl Red Cell Distribution Width 13.3% Platelet Count 61176^3/UL Mean Platelet Volume 9.6fl Neutrophils % 62.5% Lymphocytes % 28.7% Monocytes % 7.7% Eosinophils % 0.6% Basophils % 0.3% Nucleated Red Blood Cells % 0.0/100WBC Neutrophils # (Manual) 610^3/ul Lymphocytes # 2.710^3/ul Monocytes # 0.710^3/ul Eosinophils # 0.110^3/ul Basophils # 0.010^3/ul Nucleated Red Blood Cells # 0.010^3/ul Prothrombin Time 12.3Sec Prothrombin Time Ratio 1.0 INR International Normalized Ratio 0.91 Activated Partial Thromboplast Time 31.7Sec Urine Color MARGY Urine Clarity SLIGHTLY CLOUDY Urine pH 5.0 Urine Specific [place] 1.028 Urine Ketones TRACEmg/dL Urine Nitrite NEGATIVEmg/dL Urine Bilirubin NEGATIVEmg/dL Urine Urobilinogen 1+mg/dL Urine Leukocyte Esterase NEGATIVELeu/ul Urine Microscopic RBC 0/HPF Urine Microscopic WBC 2/HPF Urine Hyaline Casts FEW/HPF Urine Mucus MANY/HPF Urine Hemoglobin NEGATIVEmg/dL Urine Glucose NEGATIVEmg/dL Urine Total Protein 1+mg/dl Sodium Level 143mmol/L Potassium Level 4.0mmol/L Chloride Level 100mmol/L Carbon Dioxide Level 25mmol/L Anion Gap 22 Blood Urea Nitrogen 15mg/dl Creatinine 0.89mg/dl Glucose Level 103mg/dl Calcium Level 9.6mg/dl Total Bilirubin 0.1mg/dl Direct Bilirubin 0.00mg/dl Indirect Bilirubin 0.1mg/dl Aspartate Amino Transf (AST/SGOT) 28IU/L Alanine Aminotransferase (ALT/SGPT) 39IU/L Alkaline Phosphatase 45IU/L Total Protein 8.6g/dl Albumin 4.9g/dl Globulin 3.70g/dl Albumin/Globulin Ratio 1.32 Current Medications Medications (Trade) Dose Ordered Sig/Susi Route PRN Reason Start Time Stop Time Status Last Admin Dose Admin Acetaminophen/ Hydrocodone Bitart ([place] (5/325)) 1 tab ONCE ONCE PO 12/20/16 17:30 12/20/16 17:31 DC 12/20/16 17:21 Procedures/MDM 51-year-old male presents with multiple complaints including neck pain, blindness and general malaise. Workup was given in the ED with adequate relief of symptoms. Has felt feverish, thus CBC, CMP, PT/PTT, and urinalysis were obtained and all were unremarkable. I have spoken with the patient and explained to them that narcotic pain medication will most likely not be necessary. Urine showed a hyaline casts, mucus, and ketones. X-ray was ordered. I will suspicion for acute abdomen, obstructive nephrolithiasis, or serious bacterial infection. Patient eloped after receiving Mendon and laboratory tests in the ED. Departure Diagnosis: Primary Impression: Drug-seeking behavior Condition: Stable Additional Instructions: Patient eloped after treatment no laboratory tests. CHERI CHAVIRA PA-C Dec 20, 2016 17:10
[2016-12-20] MEDS ORDERED: HYDROCODONE/APAP (5/325) TAB PO ONE (17:30)
[2016-12-20 17:33] LABS: BASOPHILS % 0.3 % (0.0-2.0); EOSINOPHILS # 0.1 10^3/ul (0.0-0.5); EOSINOPHILS % 0.6 % (0.0-7.0); HEMATOCRIT 44.9 % (42.0-52.0); HEMOGLOBIN 14.8 g/dl (14.0-18.0); LYMPHOCYTES # 2.7 10^3/ul (0.8-2.9); LYMPHOCYTES % 28.7 % (15.0-51.0); MEAN CORPUSCULAR HEMOGLOBIN 26.8 pg (29.0-33.0); MEAN CORPUSCULAR VOLUME 81.3 fl (82.0-101.0); MEAN PLATELET VOLUME 9.6 fl (7.4-10.4); MONOCYTE # 0.7 10^3/ul (0.3-0.9); MONOCYTES % 7.7 % (0.0-11.0); NEUTROPHILS % 62.5 % (39.0-77.0); PLATELET COUNT 366 10^3/UL (140-415); RED BLOOD COUNT 5.52 10^6/ul (4.70-6.10); RED CELL DISTRIBUTION WIDTH 13.3 % (11.5-14.5); WHITE BLOOD COUNT 9.5 10^3/ul (4.8-10.8)
[2016-12-20 17:40] LABS: ADD UMIC YES; UR ASCORBIC ACID NEGATIVE (NEGATIVE); UR BILIRUBIN (Dip) NEGATIVE (NEGATIVE); UR BLOOD (Dip) NEGATIVE (NEGATIVE); UR CLARITY SLIGHTLY CLOUDY (CLEAR); UR COLOR AMBER (YELLOW); UR GLUCOSE (Dip) NEGATIVE (NEGATIVE); UR KETONES (Dip) TRACE mg/dL (NEGATIVE); UR LEUKOCYTE ESTERASE (Dip) NEGATIVE Leu/ul (NEGATIVE); UR MUCUS MANY /HPF (NONE SEEN); UR NITRITE (Dip) NEGATIVE (NEGATIVE); UR RBC 0 /HPF (0-5); UR SPECIFIC GRAVITY (Dip) 1.028 (1.003-1.030); UR TOTAL PROTEIN (Dip) 1+ mg/dl (NEGATIVE); UR UROBILINOGEN (Dip) 1+ mg/dL (NEGATIVE)
[2016-12-20 17:55] LABS: ALBUMIN 4.9 g/dl (3.3-4.9); ALBUMIN/GLOBULIN RATIO 1.32; BILIRUBIN,INDIRECT 0.1 mg/dl (0-1.1); BILIRUBIN,TOTAL 0.1 mg/dl (0.2-1.3); CALCIUM 9.6 mg/dl (8.4-10.2); CREATININE 0.89 mg/dl (0.61-1.24); TOTAL PROTEIN 8.6 g/dl (6.1-8.1)
[2016-12-20 18:04] LABS: INR 0.91; PROTIME 12.3 Sec (12.2-14.2)
[2016-12-20 18:05] LABS: PARTIAL THROMBOPLASTIN TIME 31.7 Sec (25.0-35.0)
== END 2016-12-20 20:50 | disposition left against medical advice (07) ==
LOC: FTE 16:29 → E/R 20:50
DX: Z76.5 Malingerer [conscious simulation] (principal); Z87.891 Personal history of nicotine dependence
CPT/HCPCS: 36415; 80053; 81001; 85025; 85610; 85730; Z7502; Z7610; 99283

== ENCOUNTER 2016-12-24 01:31 | Emergency (ER) | payer OTHER ==
[~2016-12-24] VITALS: Ht 177.8 cm; Wt 90.9 kg
[2016-12-24 01:37] VITALS: Ht 177.8 cm; Wt 90.9 kg
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
== END 2016-12-24 02:30 | disposition left against medical advice (07) ==
LOC: FTE 01:31
DX: J06.9 Acute upper respiratory infection, unspecified (principal); F41.9 Anxiety disorder, unspecified
CPT/HCPCS: 99282

== ENCOUNTER 2016-12-26 21:42 | Emergency (ER) | payer OTHER ==
[~2016-12-26] VITALS: Ht 172.7 cm; Wt 89.0 kg
[2016-12-26 21:47] VITALS: Ht 172.7 cm; Wt 89.0 kg
--- NOTE | 2016-12-27 00:48 | ERA ---
ER Documentation Chief Complaint Date/Time DATE: 12/27/16 TIME: 00:47 Chief Complaint chest pain, cough colds runny nose HPI The patient is a 51-year-old male, presenting to the ER because of fever, cough , congestion for 3 days. Denies headache, neck pain, chest pain, dyspnea, abdominal pain, vomiting, dysuria, diarrhea. He does not smoke nor drink does illicit drug Past medical history: Bipolar, anxiety, chronic low back pain, chronic neck pain Past surgical history: Back, neck, appendectomy, tonsillectomy ROS All systems reviewed and are negative except as per history of present illness. Medications Home Meds Active Scripts Dextromethorphan Hb-Promethazine Hcl* (Promethazine DM* Syrup) 473 Ml Syrup, 10 ML PO Q6 Y for COUGH, #120 ML Prov:CHERI BENAVIDES MD 12/27/16 Ibuprofen* (Motrin*) 600 Mg Tab, 600 MG PO Q6, #20 TAB Prov:CHERI BENAVIDES MD 12/27/16 Levofloxacin* (Levaquin*) 750 Mg Tablet, 750 MG PO DAILY for 5 Days, TAB Prov:CHERI BENAVIDES MD 12/27/16 Famotidine* (Pepcid*) 20 Mg Tablet, 20 MG PO DAILY for 4 Days, #20 TAB Prov:CHARO JOHNSON PA-C 08/27/16 Acetaminophen* (Tylenol*) 325 Mg Tablet, 2 TAB PO Q4 Y for PAIN AND OR ELEVATED TEMP, #30 TAB Prov:CHARO JOHNSON PA-C 08/27/16 Reported Medications Acetaminophen* (Acetaminophen*) 500 MG Extra Strength Tablet, 500 MG PO Q4H Y for PAIN AND OR ELEVATED TEMP, TAB 12/27/16 Discontinued Scripts Ibuprofen* (Ibuprofen*) 400 Mg Tablet, 400 MG PO Q6H Y for PAIN, #30 TAB Prov:CHARO JOHNSON PA-C 08/27/16 Divalproex Sodium* (Divalproex Sodium*) 500 Mg Tablet., 500 MG PO TID, #90 TAB Prov:NED BLANCHARD PA-C 01/10/16 Allergies Allergies: Coded Allergies: Penicillins (Verified Allergy, Unknown, 12/20/16) PMhx/Soc History of Surgery: Yes (Lumbar Disectomy,Appy,Tonsillectomy,Neck Fusion) Anesthesia Reaction: No Hx Neurological Disorder: No Hx Respiratory Disorders: No Hx Cardiac Disorders: No Hx Psychiatric Problems: Yes (Bipolar D/O,Anxiety) Hx Miscellaneous Medical Probl: No (chronic neck/back pain) Hx Alcohol Use: Yes (denies) Hx Substance Use: Yes (METH - denies at this time) Hx Tobacco Use: No Smoking Status: Unknown if ever smoked Physical Exam Vitals Vital Signs Date Time Temp Pulse Resp B/P Pulse Ox O2 Delivery O2 Flow Rate FiO2 12/27/16 04:14 99.1 87 18 111/69 98 Room Air 12/27/16 02:59 93 20 107/62 96 Room Air 12/27/16 01:44 100.0 90 20 126/86 100 Room Air 12/27/16 01:41 89 20 97 21 12/26/16 21:47 101.5 115 20 132/85 97 Physical Exam Const: No acute distress. Head: Atraumatic. Eyes: Normal Conjunctiva. ENT: Normal External Ears, Nose and Mouth. Bilateral tympanic membranes are within normal limits, erythematous pharynx Neck: Full range of motion. No meningismus. Resp: Clear to auscultation bilaterally. Cardio: Regular tachycardic Abd: Soft, non distended, normal bowel sounds, non tender. Skin: No petechiae or rashes. Back: No midline or flank tenderness. Ext: No cyanosis, or edema. Neur: Awake and alert. No focal deficit Psych: Normal Mood and Affect. Result Diagram: 12/27/16 0005 12/27/16 0005 Results 24 hrs Laboratory Tests Test 12/27/16 00:05 12/27/16 01:30 White Blood Count 6.410^3/ul Red Blood Count 4.6510^6/ul Hemoglobin 12.5g/dl Hematocrit 38.5% Mean Corpuscular Volume 82.8fl Mean Corpuscular Hemoglobin 26.9pg Mean Corpuscular Hemoglobin Concent 32.5g/dl Red Cell Distribution Width 13.7% Platelet Count 55164^3/UL Mean Platelet Volume 10.0fl Neutrophils % 66.6% Lymphocytes % 18.4% Monocytes % 14.0% Eosinophils % 0.5% Basophils % 0.3% Nucleated Red Blood Cells % 0.0/100WBC Neutrophils # (Manual) 4.210^3/ul Lymphocytes # 1.210^3/ul Monocytes # 0.910^3/ul Eosinophils # 0.010^3/ul Basophils # 0.010^3/ul Nucleated Red Blood Cells # 0.010^3/ul Prothrombin Time 12.2Sec Prothrombin Time Ratio 1.0 INR International Normalized Ratio 0.91 Activated Partial Thromboplast Time 32.0Sec Sodium Level 133mmol/L Potassium Level 4.0mmol/L Chloride Level 95mmol/L Carbon Dioxide Level 27mmol/L Anion Gap 15 Blood Urea Nitrogen 13mg/dl Creatinine 0.88mg/dl Glucose Level 101mg/dl Lactic Acid Level 1.2mmol/L Calcium Level 9.1mg/dl Total Bilirubin 0.1mg/dl Direct Bilirubin 0.00mg/dl Indirect Bilirubin 0.1mg/dl Aspartate Amino Transf (AST/SGOT) 79IU/L Alanine Aminotransferase (ALT/SGPT) 151IU/L Alkaline Phosphatase 64IU/L Total Protein 7.9g/dl Albumin 4.3g/dl Globulin 3.60g/dl Albumin/Globulin Ratio 1.19 Urine Color STRAW Urine Clarity CLEAR Urine pH 7.0 Urine Specific [place] 1.005 Urine Ketones NEGATIVEmg/dL Urine Nitrite NEGATIVEmg/dL Urine Bilirubin NEGATIVEmg/dL Urine Urobilinogen NEGATIVEmg/dL Urine Leukocyte Esterase NEGATIVELeu/ul Urine Hemoglobin NEGATIVEmg/dL Urine Glucose NEGATIVEmg/dL Urine Total Protein NEGATIVEmg/dl Urine Opiates Screen Negative Urine Barbiturates Negative Urine Amphetamines Screen Negative Urine Benzodiazepines Screen Negative Urine Cocaine Screen Negative Urine Cannabinoids Negative Current Medications Medications (Trade) Dose Ordered Sig/Ssui Route PRN Reason Start Time Stop Time Status Last Admin Dose Admin Sodium Chloride (NS) 2,760 ml @ 2,760 mls/hr BOLUS X1 ONCE IV 12/27/16 01:00 12/27/16 01:59 DC 12/27/16 01:21 Acetaminophen (Tylenol Tab) 650 mg ONCE ONCE PO 12/27/16 01:00 12/27/16 01:01 DC 12/27/16 01:21 Ibuprofen (Motrin) 600 mg ONCE ONCE PO 12/27/16 01:00 12/27/16 01:01 DC 12/27/16 01:21 Levalbuterol (Xopenex Neb) 1.25 mg ONCE ONCE HHN 12/27/16 01:30 12/27/16 01:31 DC 12/27/16 01:41 Ipratropium [place] (Atrovent 0.02% (Neb)) 0.5 mg ONCE ONCE HHN 12/27/16 01:30 12/27/16 01:31 DC 12/27/16 01:41 Morphine Sulfate (morphine) 4 mg ONCE ONCE IV 12/27/16 01:57 12/27/16 01:58 DC 12/27/16 02:03 Ondansetron HCl (Zofran Inj) 4 mg ONCE ONCE IV 12/27/16 01:57 12/27/16 01:58 DC 12/27/16 02:03 Levofloxacin (Levaquin) 750 mg ONCE ONCE PO 12/27/16 03:00 12/27/16 03:01 DC 12/27/16 02:58 Procedures/[place] [id number] Radiology Main Line: [phone] DIAGNOSTIC IMAGING REPORT Patient: MARCELINA WOODS : 1965 Age: 51 Sex: M MR #: [id number] DOS: 12/27/16 0056 Ordering MD: CHERI BENAVIDES MD Location: E/R Room/Bed: PROCEDURE: Portable chest x-ray. CLINICAL INDICATION: 51 years of age, male. Possible sepsis. TECHNIQUE: Portable AP view of the chest. COMPARISON: None available. FINDINGS: Cardiomediastinal contours are normal. Lungs are clear. Negative for pleural effusion or pneumothorax. Curvature thoracic spine convex right. IMPRESSION: Negative for evidence of acute chest process. Negative for an infiltrate. RPTAT: HCTS Physician Jennifer Date Time Electronically viewed and signed by Physician Jennifer on 12/27/2016 01: 44 CS/ CC: CHERI BENAVIDES MD EKG: Read by emergency physician Rate/Rhythm: Normal Sinus Rhythm 99 beats/min QRS, ST, T-waves: No ST elevation, no T inversion, left atrial enlargement, incomplete right bundle branch block Impression: Abnormal EKG MEDICAL MAKING DECISION: The patient is a 51-year-old male, presenting with acute febrile illness, acute bronchitis, acute dehydration. He was treated with normal saline 30 mL/kg IV, Motrin and Tylenol and morphine 4 mg IV for pain and fever and Zofran 4 mg IV for nausea, Levaquin p.o. for acute bronchitis with good response. On multiple reevaluation, he feels much better The differential diagnoses considered include but are not limited to asthma, COPD, pneumonia, pulmonary embolus, pleural effusion, congestive heart failure. Departure Diagnosis: Primary Impression: Acute febrile illness Additional Impressions: Bronchitis Dehydration Anemia Condition: Good Comments He was discharged with Levaquin, Motrin, Robitussin-DM I discussed the findings with the patient. I advised the patient to follow-up with the primary physician in about 1-2 days, sooner if needed and return if any concern. The patient's blood pressure was elevated (>120/80) but appears stable without evidence of hypertension emergency or urgency. The patient was counseled about the risks of hypertension and urged to pursue outpatient monitoring and therapy within a week with their primary care physician. CHERI BENAVIDES MD Dec 27, 2016 00:47
[2016-12-27] MEDS ORDERED: ACETAMINOPHEN 325 MG TAB PO ONE (01:00)
[2016-12-27] MEDS ORDERED: SOD CHLORIDE 0.9% 2,760 ML IV ONE (01:00)
[2016-12-27] MEDS ORDERED: IBUPROFEN 600 MG TAB PO ONE (01:00)
[2016-12-27] MEDS ORDERED: LEVALBUTEROL (NEB) 1.25 MG/0.5 ML AMP HHN ONE (01:30)
[2016-12-27] MEDS ORDERED: IPRATROPIUM (NEB) 0.5 MG/2.5 ML AMP HHN ONE (01:30)
[2016-12-27 01:32] LABS: BASOPHILS % 0.3 % (0.0-2.0); EOSINOPHILS % 0.5 % (0.0-7.0); HEMATOCRIT 38.5 % (42.0-52.0); HEMOGLOBIN 12.5 g/dl (14.0-18.0); LYMPHOCYTES # 1.2 10^3/ul (0.8-2.9); LYMPHOCYTES % 18.4 % (15.0-51.0); MEAN CORPUSCULAR HEMOGLOBIN 26.9 pg (29.0-33.0); MEAN CORPUSCULAR HGB CONC 32.5 g/dl (32.0-37.0); MEAN CORPUSCULAR VOLUME 82.8 fl (82.0-101.0); MONOCYTE # 0.9 10^3/ul (0.3-0.9); NEUTROPHILS % 66.6 % (39.0-77.0); PLATELET COUNT 260 10^3/UL (140-415); RED BLOOD COUNT 4.65 10^6/ul (4.70-6.10); RED CELL DISTRIBUTION WIDTH 13.7 % (11.5-14.5); WHITE BLOOD COUNT 6.4 10^3/ul (4.8-10.8)
[2016-12-27 01:38] LABS: ALBUMIN 4.3 g/dl (3.3-4.9); ALBUMIN/GLOBULIN RATIO 1.19; BILIRUBIN,INDIRECT 0.1 mg/dl (0-1.1); BILIRUBIN,TOTAL 0.1 mg/dl (0.2-1.3); CALCIUM 9.1 mg/dl (8.4-10.2); CREATININE 0.88 mg/dl (0.61-1.24); TOTAL PROTEIN 7.9 g/dl (6.1-8.1)
[2016-12-27 01:39] LABS: INR 0.91; PROTIME 12.2 Sec (12.2-14.2)
--- NOTE | 2016-12-27 01:45 | RADRPT ---
PROCEDURE: Portable chest x-ray. CLINICAL INDICATION: 51 years of age, male. Possible sepsis. TECHNIQUE: Portable AP view of the chest. COMPARISON: None available. FINDINGS: Cardiomediastinal contours are normal. Lungs are clear. Negative for pleural effusion or pneumothorax. Curvature thoracic spine convex right. IMPRESSION: Negative for evidence of acute chest process. Negative for an infiltrate. RPTAT: HCTS Physician Jennifer Date Time Electronically viewed and signed by Jc Santiago Physician on 12/27/2016 01:44 CS/
[2016-12-27] MEDS ORDERED: ACET-141 PO (01:56)
[2016-12-27] MEDS ORDERED: morphine 4 MG/ML VIAL IV ONE (01:57)
[2016-12-27] MEDS ORDERED: ONDANSETRON 4 MG INJ IV ONE (01:57)
[2016-12-27 02:16] LABS: ADD UMIC NO; UR ASCORBIC ACID NEGATIVE (NEGATIVE); UR BILIRUBIN (Dip) NEGATIVE (NEGATIVE); UR BLOOD (Dip) NEGATIVE (NEGATIVE); UR CLARITY CLEAR (CLEAR); UR COLOR STRAW (YELLOW); UR GLUCOSE (Dip) NEGATIVE (NEGATIVE); UR KETONES (Dip) NEGATIVE (NEGATIVE); UR LEUKOCYTE ESTERASE (Dip) NEGATIVE Leu/ul (NEGATIVE); UR NITRITE (Dip) NEGATIVE (NEGATIVE); UR SPECIFIC GRAVITY (Dip) 1.005 (1.003-1.030); UR TOTAL PROTEIN (Dip) NEGATIVE (NEGATIVE); UR UROBILINOGEN (Dip) NEGATIVE (NEGATIVE)
[2016-12-27 02:27] LABS: OPIATES Negative (NEGATIVE)
[2016-12-27 02:31] LABS: BARBITURATES Negative (NEGATIVE); BENZODIAZEPINES Negative (NEGATIVE); CANNABINOIDS Negative (NEGATIVE); COCAINE Negative (NEGATIVE)
[2016-12-27] MEDS ORDERED: LEVOFLOXACIN 750 MG TABLET PO ONE (03:00)
[2016-12-27] MEDS ORDERED: LEVO750T25 PO (03:41)
[2016-12-27] MEDS ORDERED: D-ME473S2 PO (03:42)
[2016-12-27] MEDS ORDERED: IBUP-1542 PO (03:42)
[2016-12-27 04:14] VITALS: BP 111/69; PULSE 87; RESP 18; TEMP 99.1
== END 2016-12-27 04:18 | disposition home or self-care (01) ==
LOC: E/R 21:42
DX: R50.9 Fever, unspecified (principal); J20.9 Acute bronchitis, unspecified; E86.0 Dehydration; D64.9 Anemia, unspecified
CPT/HCPCS: 36415; 71010; 80053; 80307; 81003; 83605; 85025; 85610; 85730; 87040; 87086; 87400; 93005; 94664; 96374; 96375; J2270; J2405; J7030; Z7502; Z7610

== ENCOUNTER 2018-08-31 01:21 | Emergency (ER) | payer SELFPAY ==
[~2018-08-31] VITALS: Ht 172.7 cm; Wt 96.7 kg
[~2018-08-31 01:21] MED LIST changes: +ACET-141 PO; +D-ME473S2 PO; -DIVA-16 PO; +IBUP-1542 PO; -IBUP400T22 PO; +LEVO750T25 PO
[2018-08-31 01:28] VITALS: Ht 172.7 cm; Wt 96.7 kg
--- NOTE | 2018-08-31 03:53 | ERD ---
ER Documentation Chief Complaint Chief Complaint REQUESTING SW CONSULT; BUE & BLE PAIN; NO KNOWN INJ HPI This is a 53-year-old male who presents for body aches, and request for social work, discussed living situation. The patient was just released from [facility], he states that he was using a fungal cream for itching of his back, and also requests medication for acid. Otherwise he has no acute complaints, he has a history of contracture to his hands, and requests referral for hand surgeon. He denies chest pain, no nausea or vomiting. ROS All systems reviewed and are negative except as per history of present illness. Medications Home Meds Active Scripts Acetaminophen* (Tylophen*) 500 Mg Capsule, 2 CAP PO Q8H PRN for PAIN AND OR ELEVATED TEMP, #30 CAP Prov:SHAN MOSELEY MD 08/31/18 Famotidine* (Pepcid*) 20 Mg Tablet, 20 MG PO BID for 14 Days, TAB Prov:SHAN MOSELEY MD 08/31/18 Clotrimazole* (Clotrimazole* AF) 1% - 30 Gm Cream.gm., 1 APPLIC TOP BID for 14 Days, TUB Prov:SHAN MOSELEY MD 08/31/18 Dextromethorphan Hb-Promethazine Hcl* (Promethazine DM* Syrup) 473 Ml Syrup, 10 ML PO Q6 PRN for COUGH, #120 ML Prov:CHERI BENAVIDES MD 12/27/16 Ibuprofen* (Motrin*) 600 Mg Tab, 600 MG PO Q6, #20 TAB Prov:CHERI BENAVIDES MD 12/27/16 Levofloxacin* (Levaquin*) 750 Mg Tablet, 750 MG PO DAILY for 5 Days, TAB Prov:CHERI BENAVIDES MD 12/27/16 Famotidine* (Pepcid*) 20 Mg Tablet, 20 MG PO DAILY for 4 Days, #20 TAB Prov:CHARO JOHNSON PA-C 08/27/16 Acetaminophen* (Tylenol*) 325 Mg Tablet, 2 TAB PO Q4 PRN for PAIN AND OR ELEVATED TEMP, #30 TAB Prov:CHARO JOHNSON PA-C 08/27/16 Reported Medications Acetaminophen* (Acetaminophen*) 500 MG Extra Strength Tablet, 500 MG PO Q4H PRN for PAIN AND OR ELEVATED TEMP, TAB 12/27/16 Allergies Allergies: Coded Allergies: Penicillins (Verified Allergy, Unknown, 12/20/16) PMhx/Soc History of Surgery: Yes (Lumbar Disectomy,Appy,Tonsillectomy,Neck Fusion) Anesthesia Reaction: No Hx Neurological Disorder: No Hx Respiratory Disorders: No Hx Cardiac Disorders: No Hx Psychiatric Problems: Yes (Bipolar D/O,Anxiety) Hx Miscellaneous Medical Probl: No (chronic neck/back pain) Hx Alcohol Use: Yes (denies) Hx Substance Use: Yes (METH - denies at this time) Hx Tobacco Use: No Smoking Status: Never smoker Physical Exam Vitals Vital Signs Date Temp Pulse Resp B/P (MAP) Pulse Ox O2 O2 Flow FiO2 Time Delivery Rate 08/31/18 98.3 125 19 161/75 97 01:28 (103) Physical Exam Const: Afebrile, nontoxic Head: Atraumatic Eyes: Normal conjunctiva ENT: Normal external ears, nose and mouth. Neck: Resp: Normal respiratory effort Cardio: Abd: Soft, nontender nondistended Skin: Back: Ext: Full range of motion of all extremities, strength 5 out of 5 bilaterally Neur: Awake and alert Psych: Normal mood and affect Results 24 hrs Laboratory Tests Test 08/31/18 03:23 Bedside Glucose 113 mg/dL Procedures/MDM 53-year-old male presents for body aches, as well as request for prescription for medications that he has been taking in the past. In the ED is well- appearing and nontoxic, his blood glucose within normal limits, his EKG was unremarkable, I provided him a prescription for Pepcid, as well as clotrimazole cream, and Tylenol as needed for pain. Also give referral for hand surgery, p amber stated that he would return in the morning for outpatient social work evaluation, at discharge he was in no distress. EKG: Rate/Rhythm: Normal Sinus Rhythm QRS, ST, T-waves: No changes consistent w/ acute ischemia Impression: No evidence of ischemia or arrhythmia Departure Diagnosis: Primary Impression: Body aches Condition: Stable SHAN MOSELEY MD Aug 31, 2018 03:53
[2018-08-31] MEDS ORDERED: CLOT30CR24 TOP (03:57)
[2018-08-31] MEDS ORDERED: ACET500C5 PO (03:57)
[2018-08-31] MEDS ORDERED: FAMO-96 PO (03:57)
[2018-08-31] MEDS ORDERED: ACETAMINOPHEN 500 MG TAB PO STA (04:30)
[2018-08-31] MEDS ORDERED: FAMOTIDINE 20 MG TAB PO ONE (04:30)
[2018-08-31 04:33] VITALS: BP 108/88; PULSE 102; RESP 18
== END 2018-08-31 04:39 | disposition home or self-care (01) ==
LOC: E/R 01:21
DX: M79.661 Pain in right lower leg (principal); M79.662 Pain in left lower leg; M79.642 Pain in left hand; M79.641 Pain in right hand
CPT/HCPCS: 82962

== ENCOUNTER 2018-09-01 03:02 | Emergency (ER) | payer SELFPAY ==
[~2018-09-01] VITALS: Ht 185.4 cm; Wt 96.7 kg
[~2018-09-01 03:02] MED LIST changes: +ACET500C5 PO; +CLOT30CR24 TOP
[2018-09-01 03:05] VITALS: Ht 185.4 cm; Wt 96.7 kg
--- NOTE | 2018-09-01 04:06 | ERD ---
ER Documentation Chief Complaint Chief Complaint GENERAL BODY PAIN; SW CONSULT; WAS SEEN 1DAY AGO FOR SAME ISSUE HPI 53-year-old male with a history of chronic back pain presenting with multiple complaints including generalized body pain. Patient was incarcerated for 18 months and recently released. He states that all of his belongings were taken from him by the police and not returned. He only had his ID return. He has been homeless and jumping from one friend's house to another. He has been trying to deal with a social work nurse to help him get access to his money but has been unable to find any help. He seems very frustrated and states that he has chronic pain that he cannot find relief for. Since he is walking a lot, he is having worsening pain. He states that he cannot walk, however the patient was able to walk in here without any issues. He is requesting stronger pain medications and admission to the hospital. No focal weakness or numbness. No chest pain or shortness of breath. He does complain of a throbbing frontal headache that was gradual in onset, which she has had before. ROS All systems reviewed and are negative except as per history of present illness. Medications Home Meds Active Scripts Acetaminophen* (Tylophen*) 500 Mg Capsule, 2 CAP PO Q8H PRN for PAIN AND OR ELEVATED TEMP, #30 CAP Prov:SHAN MOSELEY MD 08/31/18 Famotidine* (Pepcid*) 20 Mg Tablet, 20 MG PO BID for 14 Days, TAB Prov:SHAN MOSELEY MD 08/31/18 Clotrimazole* (Clotrimazole* AF) 1% - 30 Gm Cream.gm., 1 APPLIC TOP BID for 14 Days, TUB Prov:SHAN MOSELEY MD 08/31/18 Dextromethorphan Hb-Promethazine Hcl* (Promethazine DM* Syrup) 473 Ml Syrup, 10 ML PO Q6 PRN for COUGH, #120 ML Prov:CHERI BENAVIDES MD 12/27/16 Ibuprofen* (Motrin*) 600 Mg Tab, 600 MG PO Q6, #20 TAB Prov:CHERI BENAVIDES MD 12/27/16 Levofloxacin* (Levaquin*) 750 Mg Tablet, 750 MG PO DAILY for 5 Days, TAB Prov:CHERI BENAVIDES MD 12/27/16 Famotidine* (Pepcid*) 20 Mg Tablet, 20 MG PO DAILY for 4 Days, #20 TAB Prov:CHARO JOHNSON PA-C 08/27/16 Acetaminophen* (Tylenol*) 325 Mg Tablet, 2 TAB PO Q4 PRN for PAIN AND OR ELEVATED TEMP, #30 TAB Prov:CHARO JOHNSON PA-C 08/27/16 Reported Medications Acetaminophen* (Acetaminophen*) 500 MG Extra Strength Tablet, 500 MG PO Q4H PRN for PAIN AND OR ELEVATED TEMP, TAB 12/27/16 Allergies Allergies: Coded Allergies: Penicillins (Verified Allergy, Unknown, 12/20/16) PMhx/Soc History of Surgery: Yes (Lumbar Disectomy,Appy,Tonsillectomy,Neck Fusion) Anesthesia Reaction: No Hx Neurological Disorder: No Hx Respiratory Disorders: No Hx Cardiac Disorders: No Hx Psychiatric Problems: Yes (Bipolar D/O,Anxiety) Hx Miscellaneous Medical Probl: No (chronic neck/back pain) Hx Alcohol Use: Yes (denies) Hx Substance Use: Yes (METH - denies at this time) Hx Tobacco Use: No Smoking Status: Never smoker FmHx Family History: No diabetes Physical Exam Vitals Vital Signs Date Temp Pulse Resp B/P (MAP) Pulse Ox O2 O2 Flow FiO2 Time Delivery Rate 09/01/18 99.1 96 18 120/85 96 Room Air 04:25 (97) 09/01/18 97.1 105 19 136/73 96 03:05 (94) Physical Exam Const: No acute distress, well-dressed, well-appearing. Head: Atraumatic Eyes: Normal Conjunctiva ENT: Normal External Ears, Nose and Mouth. Neck: Full range of motion. No meningismus. Resp: Clear to auscultation bilaterally Cardio: Regular rate and rhythm, no murmurs. 2+ distal pulses in all 4 extremities Abd: Soft, non tender, non distended. Normal bowel sounds Skin: No petechiae or rashes Back: No midline or flank tenderness Ext: No cyanosis, or edema Neur: Awake and alert, normal speech, no facial asymmetry, normal steady gait Psych: Depressed mood Result Diagram: 09/01/185 09/01/185 Results 24 hrs Laboratory Tests Test 09/01/18 04:45 White Blood Count 14.8 10^3/ul Red Blood Count 5.13 10^6/ul Hemoglobin 13.8 g/dl Hematocrit 42.2 % Mean Corpuscular Volume 82.3 fl Mean Corpuscular Hemoglobin 26.9 pg Mean Corpuscular Hemoglobin Concent 32.7 g/dl Red Cell Distribution Width 13.3 % Platelet Count 288 10^3/UL Mean Platelet Volume 10.0 fl Immature Granulocytes % 0.400 % Neutrophils % 67.5 % Lymphocytes % 21.2 % Monocytes % 10.1 % Eosinophils % 0.5 % Basophils % 0.3 % Nucleated Red Blood Cells % 0.0 /100WBC Immature Granulocytes # 0.060 10^3/ul Neutrophils # 10.0 10^3/ul Lymphocytes # 3.1 10^3/ul Monocytes # 1.5 10^3/ul Eosinophils # 0.1 10^3/ul Basophils # 0.0 10^3/ul Nucleated Red Blood Cells # 0.0 10^3/ul Urine Color YELLOW Urine Clarity SLIGHTLY CLOUDY Urine pH 5.0 Urine Specific Ewing 1.026 Urine Ketones 2+ mg/dL Urine Nitrite NEGATIVE mg/dL Urine Bilirubin NEGATIVE mg/dL Urine Urobilinogen NEGATIVE mg/dL Urine Leukocyte Esterase NEGATIVE Cy/ul Urine Microscopic RBC 0 /HPF Urine Microscopic WBC 2 /HPF Urine Bacteria FEW /HPF Urine Mucus MODERATE /HPF Urine Hemoglobin NEGATIVE mg/dL Urine Glucose NEGATIVE mg/dL Urine Total Protein NEGATIVE mg/dl Sodium Level 140 mmol/L Potassium Level 4.3 mmol/L Chloride Level 103 mmol/L Carbon Dioxide Level 22 mmol/L Anion Gap 15 Blood Urea Nitrogen 17 mg/dl Creatinine 0.79 mg/dl Est Glomerular Filtrat Rate mL/min > 60 mL/min Glucose Level 89 mg/dl Calcium Level 9.7 mg/dl Total Bilirubin 0.9 mg/dl Direct Bilirubin 0.00 mg/dl Indirect Bilirubin 0.9 mg/dl Aspartate Amino Transf (AST/SGOT) 237 IU/L Alanine Aminotransferase (ALT/SGPT) 73 IU/L Alkaline Phosphatase 40 IU/L Total Protein 8.3 g/dl Albumin 4.7 g/dl Globulin 3.60 g/dl Albumin/Globulin Ratio 1.30 Current Medications Medications Dose Sig/Susi Start Time Status Last (Trade) Ordered Route PRN Stop Time Admin Dose Reason Admin Ibuprofen 800 mg ONCE ONCE 09/01/18 DC 09/01/18 (Motrin) PO 05:00 04:46 09/01/18 05:01 Sodium 1,000 ml @ Q1H STAT 09/01/18 DC 09/01/18 Chloride 1,000 mls/hr IV 05:06 05:41 09/01/18 06:05 Procedures/MDM EMERGENT LABS AND DIAGNOSTIC STUDIES: Lab Results above were reviewed and interpreted by me. CBC: Leukocytosis without shift, doubt infection. No anemia CMP: No evidence of clinically significant electrolyte abnormality, acidosis, renal failure, hypoglycemia. Elevated liver enzymes, likely secondary to alcohol use given AST is greater than ALT. Doubt biliary disease UA: 2+ ketones. No evidence of infection Initial Nursing notes reviewed. Previous Medical Records requested via the Electronic Health Record. EMERGENCY DEPARTMENT COURSE / MEDICAL DECISION MAKING: Patient is presenting with generalized body aches and complaints of not having anywhere to stay. I explained to the patient that ER policy is to not treat chronic pain with opiates. I did offer him ibuprofen which she accepted. He was given food and water as well as IV fluids due to his dehydration. Urinalysis showed evidence of ketosis but he does not have ketoacidosis. This is likely secondary to poor p.o. intake. I have a low suspicion for rhabdomyolysis or serious bacterial infection. Patient has been medically cleared from my standpoint for social work evaluation, which will happen early this morning. Patient will be signed out to the oncoming ED physician pending social work consult. However from our standpoint, the patient is stable for discharge. Patient's blood pressure was elevated (>120/80) but appears stable without evidence of hypertensive emergency or urgency. The patient was counseled about the risks of hypertension and urged to pursue outpatient monitoring and therapy within a week with their primary care physician. Departure Diagnosis: Primary Impression: Generalized body aches Additional Impression: Homelessness Condition: Stable NAVA NIEVES MD Sep 01, 2018 04:06
[2018-09-01] MEDS ORDERED: IBUPROFEN 800 MG TAB PO ONE (05:00)
[2018-09-01] MEDS ORDERED: SOD CHLORIDE 0.9% 1,000 ML IV STA (05:06)
[2018-09-01 07:50] VITALS: BP 114/86; PULSE 77; RESP 17
== END 2018-09-01 07:50 | disposition home or self-care (01) ==
LOC: E/R 03:02
DX: M54.9 Dorsalgia, unspecified (principal); R40.2142 Coma scale, eyes open, spontaneous, at arrival to emergency department; R40.2252 Coma scale, best verbal response, oriented, at arrival to emergency department; R40.2362 Coma scale, best motor response, obeys commands, at arrival to emergency department; Z59.0 Homelessness
CPT/HCPCS: 36415; 80053; 81001; 85025; 99284; J7030; 81003

== ENCOUNTER 2018-09-24 07:54 | Emergency (ER) | payer MEDICAID ==
[~2018-09-24] VITALS: Wt 80.0 kg
[2018-09-24 08:01] VITALS: BP 129/60; PULSE 62; RESP 18
[2018-09-24] MEDS ORDERED: HYDR-3029 PO (08:41)
[2018-09-24] MEDS ORDERED: TRAM50TA2 PO (08:41)
[2018-09-24] MEDS ORDERED: FAMO-96 PO (08:41)
--- NOTE | 2018-09-24 10:04 | ERD ---
ER Documentation Chief Complaint Chief Complaint REFILL OF ULTRAM, ATARAX,PEPCID. HAS DAPTRON'S CONTACTURE HPI 57-year-old male presenting for medication refill. Patient states he has Dupu ytren's contracture and chronic pain. Patient states that he has been able to been seen by a primary doctor or hand surgeon. Patient states he is unable to work and is requesting me to sign a general relief emergency form he requires disability payments. He has a history of back and neck surgery. He is currently taking Ultram Atarax and Pepcid. Allergic to penicillin. Social history denies ROS All systems reviewed and are negative except as per history of present illness. Medications Home Meds Active Scripts Famotidine* (Pepcid*) 20 Mg Tablet, 20 MG PO BID for 4 Days, #30 TAB Prov:FRANCESCA WYMAN PA-C 09/24/18 Tramadol HCl (Tramadol HCl) 50 Mg Tablet, 50 MG PO Q4 PRN for PAIN, #6 TAB Prov:FRANCESCA YWMAN PA-C 09/24/18 Hydroxyzine Hcl* (Hydroxyzine Hcl*) 10 Mg Tablet, 10 MG PO Q6H PRN for ANXIETY, #30 TAB Prov:FRANCESCA WYMAN PA-C 09/24/18 Acetaminophen* (Tylophen*) 500 Mg Capsule, 2 CAP PO Q8H PRN for PAIN AND OR ELEVATED TEMP, #30 CAP Prov:SHAN MOSELEY MD 08/31/18 Famotidine* (Pepcid*) 20 Mg Tablet, 20 MG PO BID for 14 Days, TAB Prov:SHAN MOSELEY MD 08/31/18 Clotrimazole* (Clotrimazole* AF) 1% - 30 Gm Cream.gm., 1 APPLIC TOP BID for 14 Days, TUB Prov:SHAN MOSELEY MD 08/31/18 Dextromethorphan Hb-Promethazine Hcl* (Promethazine DM* Syrup) 473 Ml Syrup, 10 ML PO Q6 PRN for COUGH, #120 ML Prov:CHERI BENAVIDES MD 12/27/16 Ibuprofen* (Motrin*) 600 Mg Tab, 600 MG PO Q6, #20 TAB Prov:CHERI BENAVIDES MD 12/27/16 Levofloxacin* (Levaquin*) 750 Mg Tablet, 750 MG PO DAILY for 5 Days, TAB Prov:CHERI BENAVIDES MD 12/27/16 Famotidine* (Pepcid*) 20 Mg Tablet, 20 MG PO DAILY for 4 Days, #20 TAB Prov:CHARO JOHNSON PA-C 08/27/16 Acetaminophen* (Tylenol*) 325 Mg Tablet, 2 TAB PO Q4 PRN for PAIN AND OR ELEVATED TEMP, #30 TAB Prov:CHARO JOHNSON PA-C 08/27/16 Reported Medications Acetaminophen* (Acetaminophen*) 500 MG Extra Strength Tablet, 500 MG PO Q4H PRN for PAIN AND OR ELEVATED TEMP, TAB 12/27/16 Allergies Allergies: Coded Allergies: Penicillins (Verified Allergy, Unknown, 09/24/18) PMhx/Soc History of Surgery: Yes (Lumbar Disectomy,Appy,Tonsillectomy,Neck Fusion) Anesthesia Reaction: No Hx Neurological Disorder: No Hx Respiratory Disorders: No Hx Cardiac Disorders: No Hx Psychiatric Problems: Yes (Bipolar D/O,Anxiety) Hx Miscellaneous Medical Probl: No (chronic neck/back pain) Hx Alcohol Use: Yes (denies) Hx Substance Use: Yes (METH - denies at this time) Hx Tobacco Use: No FmHx Family History: No diabetes, No coronary disease, No other Physical Exam Vitals Vital Signs Date Temp Pulse Resp B/P (MAP) Pulse Ox O2 O2 Flow FiO2 Time Delivery Rate 09/24/18 98.1 62 18 129/60 99 08:01 (83) Physical Exam GENERAL: The patient is well-appearing, well-nourished, in no acute distress HEENT: Atraumatic. Conjunctivae are pink. Pupils equal, round, and reactive to light. There is no scleral icterus. Tympanic membranes clear bilaterally. Oropharynx clear. No nystagmus or photophobia. NECK: C-spine is soft and supple. There is no meningismus. There is no cervical lymphadenopathy. No JVD. No bruits. No goiter. CHEST: Clear to auscultation bilaterally. There are no rales, wheezes or rhonchi. HEART: Regular rate and rhythm. No murmurs, clicks, rubs or gallops. No S3 or S4. EXTREMITIES: Equal pulses bilaterally. There is no peripheral clubbing, cyanosis or edema. No focal swelling or erythema. Full range of motion. Grossly neurovascularly intact. Contracture noted of the left fifth digit. NEUROLOGIC: Alert and oriented. Cranial nerves II through XII intact. Motor strength in all 4 extremities with 5 out of 5 strength. Sensation grossly intact. Normal speech and gait. SKIN: There is no apparent rash or petechiae. The skin is warm and dry. Procedures/MDM MDM: 53-year-old male presenting for medication refill. I reviewed patient's cures report patient does not have active prescriptions noted and cures so I will write for a few pills of pain medication. Patient also given Pepcid and hydroxyzine. I am unable to sign patient's disability forms given that he does not meet criteria as listed on the form. I explained this to patient. Told patient that he needs to follow-up with his primary care doctor if this is something that needs to be filled out as it is not something I would be able to fill in the emergency room. Patient does not meet disability criteria as listed on his form. This is explained at length and patient understood. Patient is discharged with strict ER precautions. All questions answered at discharge Departure Diagnosis: Primary Impression: Encounter for medication refill Condition: Stable Patient Instructions: Taking Medicine Safely Referrals: JENNIFER VIRGEN MD [facility] YOU HAVE RECEIVED A MEDICAL SCREENING EXAM AND THE RESULTS INDICATE THAT YOU DO NOT HAVE A CONDITION THAT REQUIRES URGENT TREATMENT IN THE EMERGENCY DEPARTMENT. FURTHER EVALUATION AND TREATMENT OF YOUR CONDITION CAN WAIT UNTIL YOU ARE SEEN IN YOUR DOCTORS OFFICE WITHIN THE NEXT 1-2 DAYS. IT IS YOUR RESPONSIBILITY TO MAKE AN APPOINTMENT FOR FOLOW-UP CARE. IF YOU HAVE A PRIMARY DOCTOR --you should call your primary doctor and schedule an appointment IF YOU DO NOT HAVE A PRIMARY DOCTOR YOU CAN CALL OUR PHYSICIAN REFERRAL HOTLINE AT IF YOU CAN NOT AFFORD TO SEE A PHYSICIAN YOU CAN CHOSE FROM THE FOLLOWING [facility] [id number] [facility] [address] [facility] [place] [address] [facility] [address] [facility] [address] [facility]. [facility] [address] [facility] Hours: Mon-Fri 9:00 AM - 5:00 PM Additional Instructions: FOLLOW UP WITH YOUR PRIMARY CARE PHYSICIAN TOMORROW.Return to this facility if you are not improving as expected. FRANCESCA WYMAN PA-C September 24, 2018 10:04
== END 2018-09-24 08:48 | disposition home or self-care (01) ==
LOC: FTE 07:54
DX: Z76.0 Encounter for issue of repeat prescription (principal)
CPT/HCPCS: 99281

== ENCOUNTER 2018-10-25 20:17 | Emergency (ER) | payer MEDICAID ==
[~2018-10-25] VITALS: Ht 177.8 cm; Wt 86.6 kg
[~2018-10-25 20:17] MED LIST changes: +HYDR-3029 PO; +TRAM50TA2 PO
[2018-10-25 20:19] VITALS: Ht 177.8 cm; Wt 86.6 kg
[2018-10-25] MEDS ORDERED: CLOT30CR24 TOP (21:30)
[2018-10-25] MEDS ORDERED: FAMO-96 PO (21:30)
[2018-10-25] MEDS ORDERED: CYCL10TA7 PO (21:30)
[2018-10-25] MEDS ORDERED: IBUP800T48 PO (21:30)
--- NOTE | 2018-10-25 21:40 | ERD ---
ER Documentation Chief Complaint Chief Complaint needs Rx for Pepcid & some kind of groin cream HPI History of Present Illness: 53-year-old male who reports a past medical history of chronic back pain due to "ruptured disc" and back surgery coming in today due to medication refill. Patient reports that he has gone to the community clinic and recently was diagnosed with muscle spasm in which he was taking ibuprofen and initially helped but he ran out of medication. Patient is also requesting famotidine for acid reflux-like symptoms, clotrimazole for chronic itchy groin area. Denies any other associated symptoms At home pharmacological/nonpharmacological treatment for symptoms: Denies Denies social concerns; Denies recent foreign travel ROS All systems reviewed and are negative except as per history of present illness. Medications Home Meds Active Scripts Clotrimazole* (Clotrimazole* AF) 1% - 30 Gm Cream.gm., 1 APPLIC TOP BID for FUNGAL INFECTION for 14 Days, #3 TUB 1 Refill Prov:FLEX HUNT NP 10/25/18 Famotidine* (Pepcid*) 20 Mg Tablet, 40 MG PO BID for ACID REFLUX/GERD for 30 Days, TAB 1 Refill Prov:FLEX HUNT NP 10/25/18 Cyclobenzaprine Hcl* (Cyclobenzaprine Hcl*) 10 Mg Tablet, 10 MG PO TID PRN for PRN, #30 TAB Prov:FLEX HUNT NP 10/25/18 Ibuprofen* (Motrin*) 800 Mg Tab, 800 MG PO Q6H PRN for PAIN AND OR ELEVATED TEMP, #60 TAB Prov:FLEX HUNT NP 10/25/18 Famotidine* (Pepcid*) 20 Mg Tablet, 20 MG PO BID for 4 Days, #30 TAB Prov:FRANCESCA WYMAN PA-C 09/24/18 Tramadol HCl (Tramadol HCl) 50 Mg Tablet, 50 MG PO Q4 PRN for PAIN, #6 TAB Prov:FRANCESCA WYMAN PA-C 09/24/18 Hydroxyzine Hcl* (Hydroxyzine Hcl*) 10 Mg Tablet, 10 MG PO Q6H PRN for ANXIETY, #30 TAB Prov:FRANCESCA WYMAN PA-C 09/24/18 Acetaminophen* (Tylophen*) 500 Mg Capsule, 2 CAP PO Q8H PRN for PAIN AND OR ELEVATED TEMP, #30 CAP Prov:SHAN MOSELEY MD 08/31/18 Famotidine* (Pepcid*) 20 Mg Tablet, 20 MG PO BID for 14 Days, TAB Prov:SHAN MOSELEY MD 08/31/18 Clotrimazole* (Clotrimazole* AF) 1% - 30 Gm Cream.gm., 1 APPLIC TOP BID for 14 Days, TUB Prov:SHAN MOSELEY MD 08/31/18 Dextromethorphan Hb-Promethazine Hcl* (Promethazine DM* Syrup) 473 Ml Syrup, 10 ML PO Q6 PRN for COUGH, #120 ML Prov:CHERI BENAVIDES MD 12/27/16 Ibuprofen* (Motrin*) 600 Mg Tab, 600 MG PO Q6, #20 TAB Prov:CHERI BENAVIDES MD 12/27/16 Levofloxacin* (Levaquin*) 750 Mg Tablet, 750 MG PO DAILY for 5 Days, TAB Prov:CHERI BENAVIDES MD 12/27/16 Famotidine* (Pepcid*) 20 Mg Tablet, 20 MG PO DAILY for 4 Days, #20 TAB Prov:CHARO JOHNSON PA-C 08/27/16 Acetaminophen* (Tylenol*) 325 Mg Tablet, 2 TAB PO Q4 PRN for PAIN AND OR ELEVA ZULEMA TEMP, #30 TAB Prov:CHARO JOHNSON PA-C 08/27/16 Reported Medications Acetaminophen* (Acetaminophen*) 500 MG Extra Strength Tablet, 500 MG PO Q4H PRN for PAIN AND OR ELEVATED TEMP, TAB 12/27/16 Allergies Allergies: Coded Allergies: Penicillins (Verified Allergy, Unknown, 09/24/18) PMhx/Soc History of Surgery: Yes (Lumbar Disectomy,Appy,Tonsillectomy,Neck Fusion) Anesthesia Reaction: No Hx Neurological Disorder: No Hx Respiratory Disorders: No Hx Cardiac Disorders: No Hx Psychiatric Problems: Yes (Bipolar D/O,Anxiety) Hx Miscellaneous Medical Probl: No (chronic neck/back pain) Hx Alcohol Use: Yes (denies) Hx Substance Use: Yes (METH - denies at this time) Hx Tobacco Use: No Smoking Status: Unknown if ever smoked FmHx Family History: No diabetes, No coronary disease Physical Exam Vitals Vital Signs Date Temp Pulse Resp B/P (MAP) Pulse Ox O2 O2 Flow FiO2 Time Delivery Rate 10/25/18 97.8 114 20 137/71 98 20:19 (93) Physical Exam Const: No acute distress, afebrile Head: Atraumatic Eyes: Normal Conjunctiva ENT: Normal External Ears, Nose and Mouth. Neck: Full range of motion. No meningismus. Resp: Clear to auscultation bilaterally Cardio: Regular rate and rhythm, no murmurs Abd: Soft, non tender, non distended. No guarding, no masses, no rigidity Skin: No petechiae or rashes Back: No midline or flank tenderness; musculoskeletal tenderness Ext: No cyanosis, or edema Neur: Awake and alert x3, speaking in clear sentences, no focal deficits or facial asymmetry Psych: Normal Mood and Affect Procedures/MDM ED course includes a thorough examination and history. Low suspicion for life-threatening medical emergency. Denies any acute symptoms. Otherwise healthy patient presenting with constellation of symptoms likely representing muscle spasm, chronic GERD, history of jock itch, chronic back pain as characterized by history, physical exam findings. Disposition for discharge with followup in 2 days with PCP/clinic. Departure Diagnosis: Primary Impression: Encounter for medication refill Additional Impressions: Chronic back pain greater than 3 months duration Chronic GERD History of jock itch Muscle spasm of back Condition: Stable Patient Instructions: Taking Medicine Safely, Gerd (Adult), Fungal Infection, Skin [General], Muscle Spasm Referrals: [facility] YOU HAVE RECEIVED A MEDICAL SCREENING EXAM AND THE RESULTS INDICATE THAT YOU DO NOT HAVE A CONDITION THAT REQUIRES URGENT TREATMENT IN THE EMERGENCY DEPARTMENT. FURTHER EVALUATION AND TREATMENT OF YOUR CONDITION CAN WAIT UNTIL YOU ARE SEEN IN YOUR DOCTORS OFFICE WITHIN THE NEXT 1-2 DAYS. IT IS YOUR RESPONSIBILITY TO MAKE AN APPOINTMENT FOR FOLOW-UP CARE. IF YOU HAVE A PRIMARY DOCTOR --you should call your primary doctor and schedule an appointment IF YOU DO NOT HAVE A PRIMARY DOCTOR YOU CAN CALL OUR PHYSICIAN REFERRAL HOTLINE AT IF YOU CAN NOT AFFORD TO SEE A PHYSICIAN YOU CAN CHOSE FROM THE FOLLOWING [facility] [address] [facility]. [facility] [address] [facility] [address] [facility] [address] [facility] [address] [facility]. [address] [facility]. [facility] YOU HAVE RECEIVED A MEDICAL SCREENING EXAM AND THE RESULTS INDICATE THAT YOU DO NOT HAVE A CONDITION THAT REQUIRES URGENT TREATMENT IN THE EMERGENCY DEPARTMENT. FURTHER EVALUATION AND TREATMENT OF YOUR CONDITION CAN WAIT UNTIL YOU ARE SEEN IN YOUR DOCTORS OFFICE WITHIN THE NEXT 1-2 DAYS. IT IS YOUR RESPONSIBILITY TO MAKE AN APPOINTMENT FOR FOLOW-UP CARE. IF YOU HAVE A PRIMARY DOCTOR --you should call your primary doctor and schedule and appointment IF YOU DO NOT HAVE A PRIMARY DOCTOR YOU CAN CALL OUR PHYSICIAN REFERRAL HOTLINE AT . IF YOU CAN NOT AFFORD TO SEE A PHYSICIAN YOU CAN CHOSE FROM THE FOLLOWING [facility]: [facility] [address] [place] [address] [facility] [address] [place] [address] [facility] [address] [place] [address] Additional Instructions: Thank you very much for allowing us to participate in your care. Your health and safety is our top priority at [facility]. It is important to read all discharge instructions and education provided in your discharge packet. Call your primary care doctor TOMORROW for an appointment during the next 2-4 days and bring all the information and medications prescribed. Have prescriptions filled and follow precisely the directions on the label. --Ibuprofen is a medication that will help with pain/inflammation. At the dosage of 600 to 800 mg, this will help with inflammation/swelling. Take this medication as prescribed. --Cyclobenzaprine as a muscle relaxer; take this medication daily as prescribed for the next week to help with your muscle spasm. Do not operate heavy machinery while taking this medication; It may make you drowsy. --Famotidine is a medication that will help with acid reflux; take this medication as prescribed for the with lunch and dinner. Report to your primary care doctor if the nausea/upper abdominal pain/burning is no longer present with this medication. If so, it is highly likely that your acid reflux is causing your symptoms. -Clotrimazole is a antifungal cream. Uses medication as prescribed. If the symptoms get worse and your provider is unavailable, return to the Emergency Department immediately. FLEX HUNT NP Oct 25, 2018 21:40
[2018-10-25 21:42] VITALS: BP 128/82; PULSE 92; RESP 16
== END 2018-10-25 21:42 | disposition home or self-care (01) ==
LOC: FTE 20:17
DX: Z76.0 Encounter for issue of repeat prescription (principal); M54.9 Dorsalgia, unspecified; K21.9 Gastro-esophageal reflux disease without esophagitis; M62.830 Muscle spasm of back; Z87.2 Personal history of diseases of the skin and subcutaneous tissue
CPT/HCPCS: 99281

== ENCOUNTER 2018-10-29 03:39 | Emergency (ER) | payer MEDICAID ==
[~2018-10-29] VITALS: Ht 177.8 cm; Wt 86.2 kg
[~2018-10-29 03:39] MED LIST changes: +CYCL10TA7 PO; +IBUP800T48 PO
[2018-10-29 03:48] VITALS: Ht 177.8 cm; Wt 86.2 kg
[2018-10-29] MEDS ORDERED: CYCL10TA7 PO (04:20)
[2018-10-29] MEDS ORDERED: FAMO-96 PO (04:20)
--- NOTE | 2018-10-29 04:23 | ERD ---
ER Documentation Chief Complaint Chief Complaint needs Rx for Pepcid&Flexeril HPI 53-year-old male with past medical history of GERD and chronic back pain presents to the emergency department for medication refill. He is requesting refill Flexeril and Pepcid. He denies any other complaints at this time. ROS All systems reviewed and are negative except as per history of present illness. Medications Home Meds Active Scripts Cyclobenzaprine Hcl* (Cyclobenzaprine Hcl*) 10 Mg Tablet, 10 MG PO TID, #15 TAB Prov:BABATUNDE KEARNEY PA-C 10/29/18 Famotidine* (Pepcid*) 20 Mg Tablet, 20 MG PO BID for 10 Days, #20 TAB Prov:BABATUNDE KEARNEY PA-C 10/29/18 Clotrimazole* (Clotrimazole* AF) 1% - 30 Gm Cream.gm., 1 APPLIC TOP BID for FUNGAL INFECTION for 14 Days, #3 TUB 1 Refill Prov:FLEX HUNT NP 10/25/18 Famotidine* (Pepcid*) 20 Mg Tablet, 40 MG PO BID for ACID REFLUX/GERD for 30 Days, TAB 1 Refill Prov:FLEX HUNT NP 10/25/18 Cyclobenzaprine Hcl* (Cyclobenzaprine Hcl*) 10 Mg Tablet, 10 MG PO TID PRN for PRN, #30 TAB Prov:FLEX HUNT NP 10/25/18 Ibuprofen* (Motrin*) 800 Mg Tab, 800 MG PO Q6H PRN for PAIN AND OR ELEVATED TEMP, #60 TAB Prov:FLEX HUNT NP 10/25/18 Famotidine* (Pepcid*) 20 Mg Tablet, 20 MG PO BID for 4 Days, #30 TAB Prov:FRANCESCA WYMAN PA-C 09/24/18 Tramadol HCl (Tramadol HCl) 50 Mg Tablet, 50 MG PO Q4 PRN for PAIN, #6 TAB Prov:FRANCESCA WYMAN PA-C 09/24/18 Hydroxyzine Hcl* (Hydroxyzine Hcl*) 10 Mg Tablet, 10 MG PO Q6H PRN for ANXIETY, #30 TAB Prov:FRANCESCA WYMAN PA-C 09/24/18 Acetaminophen* (Tylophen*) 500 Mg Capsule, 2 CAP PO Q8H PRN for PAIN AND OR ELEVATED TEMP, #30 CAP Prov:SHAN MOSELEY MD 08/31/18 Famotidine* (Pepcid*) 20 Mg Tablet, 20 MG PO BID for 14 Days, TAB Prov:SHAN MOSELEY MD 08/31/18 Clotrimazole* (Clotrimazole* AF) 1% - 30 Gm Cream.gm., 1 APPLIC TOP BID for 14 Days, TUB Prov:SHAN MOSELEY MD 08/31/18 Dextromethorphan Hb-Promethazine Hcl* (Promethazine DM* Syrup) 473 Ml Syrup, 10 ML PO Q6 PRN for COUGH, #120 ML Prov:CHERI BENAVIDES MD 12/27/16 Ibuprofen* (Motrin*) 600 Mg Tab, 600 MG PO Q6, #20 TAB Prov:CHERI BENAVIDES MD 12/27/16 Levofloxacin* (Levaquin*) 750 Mg Tablet, 750 MG PO DAILY for 5 Days, TAB Prov:CHERI BENAVIDES MD 12/27/16 Famotidine* (Pepcid*) 20 Mg Tablet, 20 MG PO DAILY for 4 Days, #20 TAB Prov:CHARO JOHNSON PA-C 08/27/16 Acetaminophen* (Tylenol*) 325 Mg Tablet, 2 TAB PO Q4 PRN for PAIN AND OR ELEVATED TEMP, #30 TAB Prov:CHARO JOHNSON PA-C 08/27/16 Reported Medications Acetaminophen* (Acetaminophen*) 500 MG Extra Strength Tablet, 500 MG PO Q4H PRN for PAIN AND OR ELEVATED TEMP, TAB 12/27/16 Allergies Allergies: Coded Allergies: Penicillins (Verified Allergy, Unknown, 09/24/18) PMhx/Soc History of Surgery: Yes (Lumbar Disectomy,Appy,Tonsillectomy,Neck Fusion) Anesthesia Reaction: No Hx Neurological Disorder: No Hx Respiratory Disorders: No Hx Cardiac Disorders: No Hx Psychiatric Problems: Yes (Bipolar D/O,Anxiety) Hx Miscellaneous Medical Probl: No (chronic neck/back pain) Hx Alcohol Use: Yes (denies) Hx Substance Use: Yes (METH - denies at this time) Hx Tobacco Use: No FmHx Family History: No diabetes Physical Exam Vitals Vital Signs Date Temp Pulse Resp B/P (MAP) Pulse Ox O2 O2 Flow FiO2 Time Delivery Rate 10/29/18 97.6 111 20 146/82 99 03:48 (103) Physical Exam Const: No acute distress Head: Atraumatic Eyes: Normal Conjunctiva ENT: Normal External Ears, Nose and Mouth. Neck: Full range of motion. No meningismus. Resp: Clear to auscultation bilaterally Cardio: Regular rate and rhythm, no murmurs Skin: No petechiae or rashes Ext: No cyanosis, or edema Neur: Awake and alert Psych: Normal Mood and Affect Procedures/MDM 53-year-old male presents for medication refill. He will be given prescriptions exactly as written before. He was given counseling on proper and safe use of medication. No evidence of life-threatening or emergent pathology. Patient's blood pressure was elevated (>120/80) but appears stable without evidence of hypertension emergency or urgency. The patient is to follow-up and pursue outpatient monitoring and therapy with their primary care physician within 1 week and return immediately if they have any new, worsening, or concerning symptoms. Departure Diagnosis: Primary Impression: Encounter for medication refill Condition: Fair Patient Instructions: Taking Medicine Safely Referrals: [facility] YOU HAVE RECEIVED A MEDICAL SCREENING EXAM AND THE RESULTS INDICATE THAT YOU DO NOT HAVE A CONDITION THAT REQUIRES URGENT TREATMENT IN THE EMERGENCY DEPARTMENT. FURTHER EVALUATION AND TREATMENT OF YOUR CONDITION CAN WAIT UNTIL YOU ARE SEEN IN YOUR DOCTORS OFFICE WITHIN THE NEXT 1-2 DAYS. IT IS YOUR RESPONSIBILITY TO MAKE AN APPOINTMENT FOR FOLOW-UP CARE. IF YOU HAVE A PRIMARY DOCTOR --you should call your primary doctor and schedule an appointment IF YOU DO NOT HAVE A PRIMARY DOCTOR YOU CAN CALL OUR PHYSICIAN REFERRAL HOTLINE AT IF YOU CAN NOT AFFORD TO SEE A PHYSICIAN YOU CAN CHOSE FROM THE FOLLOWING [facility] [address] [facility] [address] [facility] [address] [facility] [address] [facility] [address] [facility] [facility]. [address] Additional Instructions: Call your primary care doctor TOMORROW for an appointment during the next 1-2 days.See the doctor sooner or return here if your condition worsens before your appointment time. BABATUNDE KEARNEY PA-C Oct 29, 2018 04:23
[2018-10-29 04:34] VITALS: BP 137/67; PULSE 96; RESP 18
== END 2018-10-29 04:35 | disposition home or self-care (01) ==
LOC: FTE 03:39
DX: Z76.0 Encounter for issue of repeat prescription (principal)
CPT/HCPCS: 99281

== ENCOUNTER 2018-11-04 00:30 | Emergency (ER) | payer MEDICAID, OTHER ==
[~2018-11-04] VITALS: Ht 177.8 cm; Wt 86.5 kg
[2018-11-04 00:32] VITALS: Ht 177.8 cm; Wt 86.5 kg
--- NOTE | 2018-11-04 01:34 | ERD ---
ER Documentation Chief Complaint Chief Complaint fatigue HPI The patient is a 53-year-old male, presenting to the ER because of generalized fatigue since he has been working nonstop for the last 2 months. He denies any fever, chills, neck pain, chest pain, dyspnea, abdominal pain, vomiting, dysuria, diarrhea. He does illicit drug Past medical history: Bipolar, anxiety, chronic low back pain, Dupuytren contracture of bilateral fifth fingers Past surgical history: Appendectomy, tonsillectomy, neck surgery ROS All systems reviewed and are negative except as per history of present illness. Medications Home Meds Active Scripts Cyclobenzaprine Hcl* (Cyclobenzaprine Hcl*) 10 Mg Tablet, 10 MG PO TID, #15 TAB Prov:BABATUNDE KEARNEY PA-C 10/29/18 Famotidine* (Pepcid*) 20 Mg Tablet, 20 MG PO BID for 10 Days, #20 TAB Prov:BABATUNDE KEARNEY PA-C 10/29/18 Clotrimazole* (Clotrimazole* AF) 1% - 30 Gm Cream.gm., 1 APPLIC TOP BID for FUNGAL INFECTION for 14 Days, #3 TUB 1 Refill Prov:FLEX HUNT NP 10/25/18 Famotidine* (Pepcid*) 20 Mg Tablet, 40 MG PO BID for ACID REFLUX/GERD for 30 Days, TAB 1 Refill Prov:FLEX HUNT NP 10/25/18 Cyclobenzaprine Hcl* (Cyclobenzaprine Hcl*) 10 Mg Tablet, 10 MG PO TID PRN for PRN, #30 TAB Prov:FLEX HUNT NP 10/25/18 Ibuprofen* (Motrin*) 800 Mg Tab, 800 MG PO Q6H PRN for PAIN AND OR ELEVATED TEMP, #60 TAB Prov:FLEX HUNT NP 10/25/18 Famotidine* (Pepcid*) 20 Mg Tablet, 20 MG PO BID for 4 Days, #30 TAB Prov:FRANCESCA WYMAN PA-C 09/24/18 Tramadol HCl (Tramadol HCl) 50 Mg Tablet, 50 MG PO Q4 PRN for PAIN, #6 TAB Prov:FRANCESCA WYMAN PA-C 09/24/18 Hydroxyzine Hcl* (Hydroxyzine Hcl*) 10 Mg Tablet, 10 MG PO Q6H PRN for ANXIETY, #30 TAB Prov:FRANCESCA WYMAN PA-C 09/24/18 Acetaminophen* (Tylophen*) 500 Mg Capsule, 2 CAP PO Q8H PRN for PAIN AND OR ELEVATED TEMP, #30 CAP Prov:SHAN MOSELEY MD 08/31/18 Famotidine* (Pepcid*) 20 Mg Tablet, 20 MG PO BID for 14 Days, TAB Prov:SHAN MOSELEY MD 08/31/18 Clotrimazole* (Clotrimazole* AF) 1% - 30 Gm Cream.gm., 1 APPLIC TOP BID for 14 Days, TUB Prov:SHAN MOSELEY MD 08/31/18 Dextromethorphan Hb-Promethazine Hcl* (Promethazine DM* Syrup) 473 Ml Syrup, 10 ML PO Q6 PRN for COUGH, #120 ML Prov:CHERI BENAVIDES MD 12/27/16 Ibuprofen* (Motrin*) 600 Mg Tab, 600 MG PO Q6, #20 TAB Prov:CHERI BENAVIDES MD 12/27/16 Levofloxacin* (Levaquin*) 750 Mg Tablet, 750 MG PO DAILY for 5 Days, TAB Prov:CHERI BENAVIDES MD 12/27/16 Famotidine* (Pepcid*) 20 Mg Tablet, 20 MG PO DAILY for 4 Days, #20 TAB Prov:CHARO JOHNSON PA-C 08/27/16 Acetaminophen* (Tylenol*) 325 Mg Tablet, 2 TAB PO Q4 PRN for PAIN AND OR ELEVATED TEMP, #30 TAB Prov:CHARO JOHNSON PA-C 08/27/16 Reported Medications Acetaminophen* (Acetaminophen*) 500 MG Extra Strength Tablet, 500 MG PO Q4H PRN for PAIN AND OR ELEVATED TEMP, TAB 12/27/16 Allergies Allergies: Coded Allergies: Penicillins (Verified Allergy, Unknown, 09/24/18) PMhx/Soc History of Surgery: Yes (Lumbar Disectomy,Appy,Tonsillectomy,Neck Fusion) Anesthesia Reaction: No Hx Neurological Disorder: No Hx Respiratory Disorders: No Hx Cardiac Disorders: No Hx Psychiatric Problems: Yes (Bipolar D/O,Anxiety) Hx Miscellaneous Medical Probl: No (chronic neck/back pain) Hx Alcohol Use: Yes (denies) Hx Substance Use: Yes (METH - denies at this time) Hx Tobacco Use: No Physical Exam Vitals Vital Signs Date Temp Pulse Resp B/P (MAP) Pulse Ox O2 O2 Flow FiO2 Time Delivery Rate 11/04/18 98.2 85 16 114/74 100 00:32 (87) Physical Exam Const: No acute distress. Head: Atraumatic. Eyes: Normal Conjunctiva. ENT: Normal External Ears, Nose and Mouth. Neck: Full range of motion. No meningismus. Resp: Clear to auscultation bilaterally. Cardio: Regular rate and rhythm. Abd: Soft, non distended, normal bowel sounds, non tender. Skin: No petechiae or rashes. Back: No midline or flank tenderness. Ext: No cyanosis, or edema. Neur: Awake and alert. No focal deficit Psych: Normal Mood and Affect. Procedures/MDM MEDICAL MAKING DECISION: The patient is a 53-year-old male, presenting with generalized weakness due to excessive work schedule, is stable for outpatient follow-up The differential diagnoses considered include but are not limited to rhabdomyolysis, musculoskeletal pain, strain Departure Diagnosis: Primary Impression: Fatigue Condition: Good Comments I discussed the findings with the patient. I advised the patient to follow-up with the primary physician in about 1-2 days, sooner if needed and return if any concern. Disclaimer: Inadvertent spelling and grammatical errors are likely due to EHR/dictation software use and do not reflect on the overall quality of patient care. Also, please note that the electronic time recorded on this note does not necessarily reflect the actual time of the patient encounter. CHERI BENAVIDES MD Nov 04, 2018 01:34
[2018-11-04 01:49] VITALS: BP 121/86; PULSE 82; RESP 18
== END 2018-11-04 01:49 | disposition home or self-care (01) ==
LOC: E/R 00:30
DX: R53.83 Other fatigue (principal); R40.2142 Coma scale, eyes open, spontaneous, at arrival to emergency department; R40.2252 Coma scale, best verbal response, oriented, at arrival to emergency department; R40.2362 Coma scale, best motor response, obeys commands, at arrival to emergency department
CPT/HCPCS: 99282

== ENCOUNTER 2018-11-25 00:37 | Emergency (ER) | payer OTHER ==
[~2018-11-25] VITALS: Ht 177.8 cm; Wt 81.9 kg
[~2018-11-25 00:37] MED LIST changes: +BEN25 PO; +CEPH-443 PO; +LORA-441 PO; +NAPR-985 PO
[2018-11-25 00:39] VITALS: Ht 177.8 cm; Wt 81.9 kg
[2018-11-25] MEDS ORDERED: NAPROXEN 500 MG TAB PO ONE (02:30)
[2018-11-25 02:56] VITALS: BP 149/97; PULSE 74; RESP 18
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
== END 2018-11-25 02:56 | disposition home or self-care (01) ==
LOC: FTE 00:37
DX: T24.232A Burn of second degree of left lower leg, initial encounter (principal); X19.XXXA Contact with other heat and hot substances, initial encounter; Y92.9 Unspecified place or not applicable
CPT/HCPCS: Z7502; Z7610

== ENCOUNTER 2018-12-01 21:16 | Emergency (ER) | payer OTHER ==
[~2018-12-01] VITALS: Ht 177.8 cm; Wt 80.3 kg
[2018-12-01 21:31] VITALS: Ht 177.8 cm; Wt 80.3 kg
[2018-12-01] MEDS ORDERED: HYDROCODONE/APAP (5/325) TAB PO ONE (23:00)
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
== END 2018-12-01 23:09 | disposition home or self-care (01) ==
LOC: FTE 21:16
DX: T24.101D Burn of first degree of unspecified site of right lower limb, except ankle and foot, subsequent encounter (principal); X19.XXXD Contact with other heat and hot substances, subsequent encounter
CPT/HCPCS: 99283

== ENCOUNTER 2019-01-20 03:11 | Emergency (ER) | payer OTHER ==
[~2019-01-20] VITALS: Ht 179.1 cm; Wt 78.3 kg
[2019-01-20 03:24] VITALS: Ht 179.1 cm; Wt 78.3 kg
[2019-01-20] MEDS ORDERED: HYDROCODONE/APAP (10/325) TAB PO ONE (04:30)
[2019-01-20 05:19] VITALS: BP 135/89; PULSE 72; RESP 20
== END 2019-01-20 05:21 | disposition home or self-care (01) ==
LOC: FTE 03:11
DX: Z76.0 Encounter for issue of repeat prescription (principal); G89.29 Other chronic pain
CPT/HCPCS: Z7502; Z7610; 99283